=== PATIENT | male | born 1955 | race Caucasian/White ===

== ENCOUNTER 2019-01-06 18:32 | Inpatient (IN) ==
[2019-01-06] MEDS ORDERED: Furosemide 40 MG/4 ML VIAL IVP ONE (18:39)
--- NOTE | 2019-01-06 18:41 | Emergency Department Note ---
Disposition Clinical Impression: Congestive heart failure Qualifiers: Heart failure type: combined systolic and diastolic Heart failure chronicity: acute on chronic Qualified Code(s): I50.43 - Acute on chronic combined systolic (congestive) and diastolic (congestive) heart failure Disposition: Admitted As Inpatient Condition: Fair Referrals: Mynor Saldaña DO [Primary Care Provider] - Forms: ED Satisfaction Letter, Work/School Release Time of Disposition: 21:59 General Adult HPI - General Chief complaint: ED General Medical Stated complaint: WEIGHT GAIN/EDEMA Source: patient Limitations: no limitations Nursing Notes Reviewed: Yes Vital Signs Reviewed: Yes - History of Present Illness HPI Narrative: 63-year-old male presenting for one week history of gradually progressive and worsening lower extremity edema Past medical history of COPD and CHF History cellulitis Patient states pain in his lower extremities difficult ambulation Patient denies fever/chills, chest pain or shortness of breath, new neck or back pain, abdominal pain nausea vomiting hematuria or hematochezia or numbness and paresthesias. Onset (ago): week(s) Location: lower extremity Pain Severity: moderate Pain Scale: 4 - Related Data Home Medications Medication Instructions Recorded Confirmed Alprazolam [Xanax] TID 01/06/19 Duloxetine HCl [Cymbalta] 60 mg PO DAILY 01/06/19 01/06/19 FLUoxetine HCl [Prozac] DAILY 01/06/19 01/06/19 Furosemide [Lasix] 40 mg PO DAILY 01/06/19 01/06/19 Glimepiride [Amaryl] 4 mg PO DAILY 01/06/19 01/06/19 Levothyroxine [Synthroid] 25 mcg PO DAILY 01/06/19 01/06/19 Nadolol 20 mg PO DAILY 01/06/19 01/06/19 Pioglitazone [Actos] 45 mg PO DAILY 01/06/19 01/06/19 Potassium Chloride [K-Tab ER] 20 meq PO DAILY 01/06/19 01/06/19 Pregabalin [Lyrica] 200 mg PO TID 01/06/19 01/06/19 Simvastatin [Zocor] 40 mg PO HS 01/06/19 01/06/19 metFORMIN [Glucophage] BID 01/06/19 traZODone DAILY 01/06/19 Allergies Allergy/AdvReac Type Severity Reaction Status Date / Time No Known Allergies Allergy Verified 04/12/18 11:25 All systems ED: reviewed and negative except as stated. Review of Systems: As Per HPI Constitutional: Denies: fever, chills Cardiovascular: Denies: chest pain Respiratory: Denies: dyspnea Gastrointestinal: Denies: abdominal pain, nausea, vomiting, diarrhea, constipation, hematemesis, hematochezia Genitourinary: Denies: hematuria Musculoskeletal: Denies: back pain, neck pain Neurological: Denies: headache, weakness, numbness, paresthesias Past Medical History - Past Medical History Medical history: Reports: arthritis, diabetes, hyperlipidemia, hypertension, thyroid disease Psychiatric history: Reports: anxiety, depression, panic disorder - Social History Smoking Status: Current some day smoker Smokeless Tobacco Status: No Alcohol use: Reports: none Drug use: Reports: none Physical Exam - General Limitations: no limitations General appearance: alert, in no apparent distress - Head Head exam: atraumatic, normocephalic, normal inspection - Eye Eye exam: Present: normal appearance, PERRL, EOMI. Absent: scleral icterus - Neck Neck exam: Present: normal inspection, trachea midline - Chest Chest inspection: Present: normal inspection, symmetric chest wall rise - Respiratory Respiratory exam: Present: normal lung sounds bilaterally. Absent: respiratory distress, wheezes, stridor, accessory muscle use, prolonged expiratory phase - Cardiovascular Cardiovascular exam: Present: regular rate, normal rhythm, normal heart sounds, +S1, +S2. Absent: irregular rhythm, systolic murmur, diastolic murmur, JVD, +S3, +S4 - Abdominal Exam Abdominal exam: Present: soft, Non-Tender, normal bowel sounds. Absent: distention, guarding, rebound, rigidity, organomegaly - Extremities Exam Extremities exam: Present: pedal edema (3+ pitting edema bilateral lower extremities, there is erythema and swelling noted with areas of ulceration on the anterior shins bilaterally.) - Neurological Exam Neurological exam: Present: alert, oriented X3 - Psychiatric Psychiatric exam: Present: normal affect, normal mood - Skin Skin exam: Present: warm, dry, intact, normal color. Absent: rash, cyanosis, diaphoresis, erythema, pallor, mottled Course Course Narrative: CBC, BMP, troponin, chest x-ray 60 mg furosemide for management of patient's symptoms. Vital Signs Temperature 98.2 F 01/06/19 18:34 Pulse Rate 80 01/06/19 18:34 Respiratory Rate 16 01/06/19 18:34 Blood Pressure 113/51 01/06/19 18:34 O2 Sat by Pulse Oximetry 97 01/06/19 18:34 Temperature 98.2 F 01/06/19 18:34 Pulse Rate 80 01/06/19 18:34 Respiratory Rate 16 01/06/19 18:34 Blood Pressure 113/51 01/06/19 18:34 O2 Sat by Pulse Oximetry 97 01/06/19 18:34 Oxygen Delivery Oxygen Delivery Room Air Medical Decision Making - MDM Narrative Medical decision making narrative: Patient laboratory shows acute kidney injury Chest x-ray unremarkable for acute pathology Patient be admitted to hospital medicine service for CHF/potential right heart failure with overlying cellulitis of the bilateral lower extremities. - Lab Data Lab results reviewed: Yes I reviewed the patient's lab results. Result diagrams: 01/06/19 18:52 01/06/19 18:52 Lab Results 01/06/19 01/06/19 Range/Units 18:52 18:52 WBC 5.1 (4.3-11.1) K/mcL RBC 3.05 L (4.19-5.50) M/mcL Hgb 9.8 L (12.9-16.9) g/dL Hct 29.4 L (37.5-50.1) % MCV 96.4 (83.0-100.0) fL MCH 32.1 (28.0-33.3) pg MCHC 33.3 (31.6-35.5) g/dL RDW 13.3 (11.5-14.5) % Plt Count 183 (140-400) K/mcL MPV 10.7 (9.4-12.4) fL Immature Gran % 0.6 (0-4) % Seg Neutrophils % 58.6 % Lymphocytes % 24.5 % Monocytes % 11.8 % Eosinophils % 4.1 % Basophils % 0.4 % Neutrophils # 3.0 (1.6-8.9) K/mcL Lymphocytes # 1.2 (0.6-4.6) K/mcL Monocytes # 0.6 (0.0-1.3) K/mcL Eosinophils # 0.2 (0.0-0.6) K/mcL Basophils # 0.0 (0.0-0.2) K/mcL Sodium 136 (136-145) mEq/L Potassium 5.6 H (3.5-5.1) mEq/L Chloride 102 (98-107) mEq/L Carbon Dioxide 30 H (23-29) mEq/L BUN 66 H (8-23) mg/dL Creatinine 2.56 H (0.70-1.30) mg/dL Est GFR ( Amer) 31 L (> 60) Est GFR (Non-Af Amer) 26 L (> 60) BUN/Creatinine Ratio 26 (6-26) Glucose 119 H (70-105) mg/dL Calculated Osmolality 302 H (280-300) Calcium 9.1 (8.6-10.3) mg/dL Troponin I < 0.03 (< 0.04) ng/mL - Radiology Data Radiology results reviewed: Yes I reviewed the patient's radiology results. Chest X-Ray 01/06/19 18:40 IMPRESSION: No acute process. D/ / Aj Mulligan MD / Aj Mulligan MD Interpreting Provider: Aj Mulligan MD - EKG Data EKG #1 EKG attestation: Yes I reviewed and interpreted this EKG. EKG results narrative: Patient EKG shows a sinus rhythm with a heart rate of 78 bpm, MS interval of 150 ms, QR congregation 86 ms, QT/QTc interval 370/4-2 ms respectively. There are no significant ST segment elevations, depressions, pathologic Q waves, abnormal T-wave inversions, or any other signs of acute ischemic change. At this time there is no prior EKG available for comparison.
[2019-01-06 19:02] LABS: Basophils % 0.4 %; Eosinophils # 0.2 K/mcL (0.0-0.6); Eosinophils % 4.1 %; Hematocrit 29.4 % (37.5-50.1); Hemoglobin 9.8 g/dL (12.9-16.9); Immature Granulocytes % 0.6 % (0-4); Lymphocytes # 1.2 K/mcL (0.6-4.6); Lymphocytes % 24.5 %; Mean Corpuscular HGB Conc 33.3 g/dL (31.6-35.5); Mean Corpuscular Hemoglobin 32.1 pg (28.0-33.3); Mean Corpuscular Volume 96.4 fL (83.0-100.0); Mean Platelet Volume 10.7 fL (9.4-12.4); Monocytes # 0.6 K/mcL (0.0-1.3); Monocytes % 11.8 %; Platelet Count 183 K/mcL (140-400); Red Blood Count 3.05 M/mcL (4.19-5.50); Red Cell Distribution Width 13.3 % (11.5-14.5); Segmented Neutrophils % 58.6 %
--- NOTE | 2019-01-06 19:17 | Emergency Department Note ---
Disposition Clinical Impression: Congestive heart failure Qualifiers: Heart failure type: combined systolic and diastolic Heart failure chronicity: acute on chronic Qualified Code(s): I50.43 - Acute on chronic combined systolic (congestive) and diastolic (congestive) heart failure Disposition: Admitted As Inpatient Forms: ED Satisfaction Letter, Work/School Release General Adult HPI - General Chief complaint: ED General Medical Stated complaint: WEIGHT GAIN/EDEMA Time Seen by Provider: 01/06/19 18:41 Source: patient Limitations: no limitations Nursing Notes Reviewed: Yes Vital Signs Reviewed: Yes - History of Present Illness HPI Narrative: Attestation note: Patient was seen with the emergency medicine resident/nurse practitio ner/physician hearing aid assistant/transitional resident/medical student: Dr. Alfa Gregory I have personally performed a face to face evaluation on this patient. I have reviewed and agree with history and physical examination patient management and disposition. Briefly the salient points of the case are as follows: Fxsjyzdi-qsur-ded male has history of heart failure COPD is been having swollen legs for many months feeling worse over the past several weeks he has been trying to increase his Lasix dose from 20-40-60. Slightly getting more swollen home health care nurse came today was concerned sent him in for further evaluation patient has some worsening dyspnea on exertion but no active chest pain no fevers chills sputum no recent medication changes other than the Lasix. Since his use also been more unsteady and falling quite a bit. On physical examination patient does have large edematous legs 3+ to the mid tibial area with chronic skin changes of pigmentation. Full range of motion good pulses. Patient will get an EKG chest x-ray screening labs IV Lasix with admission. Disposition pending Pain Scale: 4 - Related Data Allergies Allergy/AdvReac Type Severity Reaction Status Date / Time No Known Allergies Allergy Verified 04/12/18 11:25 Past Medical History - Past Medical History Medical history: Reports: arthritis, diabetes, hyperlipidemia, hypertension, thyroid disease Psychiatric history: Reports: anxiety, depression, panic disorder - Social History Smoking Status: Current some day smoker Smokeless Tobacco Status: No Alcohol use: Reports: none Drug use: Reports: none Physical Exam - General Limitations: no limitations General appearance: alert, in no apparent distress Course Vital Signs Temperature 98.2 F 01/06/19 18:34 Pulse Rate 80 01/06/19 18:34 Respiratory Rate 16 01/06/19 18:34 Blood Pressure 113/51 01/06/19 18:34 O2 Sat by Pulse Oximetry 97 01/06/19 18:34 Temperature 98.2 F 01/06/19 18:34 Pulse Rate 80 01/06/19 18:34 Respiratory Rate 16 01/06/19 18:34 Blood Pressure 113/51 01/06/19 18:34 O2 Sat by Pulse Oximetry 97 01/06/19 18:34 Oxygen Delivery Oxygen Delivery Room Air Medical Decision Making - Lab Data Result diagrams: 01/06/19 18:52 Lab Results 01/06/19 Range/Units 18:52 WBC 5.1 (4.3-11.1) K/mcL RBC 3.05 L (4.19-5.50) M/mcL Hgb 9.8 L (12.9-16.9) g/dL Hct 29.4 L (37.5-50.1) % MCV 96.4 (83.0-100.0) fL MCH 32.1 (28.0-33.3) pg MCHC 33.3 (31.6-35.5) g/dL RDW 13.3 (11.5-14.5) % Plt Count 183 (140-400) K/mcL MPV 10.7 (9.4-12.4) fL Immature Gran % 0.6 (0-4) % Seg Neutrophils % 58.6 % Lymphocytes % 24.5 % Monocytes % 11.8 % Eosinophils % 4.1 % Basophils % 0.4 % Neutrophils # 3.0 (1.6-8.9) K/mcL Lymphocytes # 1.2 (0.6-4.6) K/mcL Monocytes # 0.6 (0.0-1.3) K/mcL Eosinophils # 0.2 (0.0-0.6) K/mcL Basophils # 0.0 (0.0-0.2) K/mcL
[2019-01-06 19:23] LABS: BUN/Creatinine Ratio 26 (6-26); Blood Urea Nitrogen 66 mg/dL (8-23); Calcium 9.1 mg/dL (8.6-10.3); Carbon Dioxide 30 mEq/L (23-29); Chloride 102 mEq/L (98-107); Glucose 119 mg/dL (70-105); Osmolality,Calculated 302 (280-300); Potassium 5.6 mEq/L (3.5-5.1); Sodium 136 mEq/L (136-145); Troponin I < 0.03 ng/mL (< 0.04); eGFR For Non-African Americans 26 (> 60)
[2019-01-06] MEDS ORDERED: *HR* FentaNYL (PF) 100 MCG/2 ML VIAL IVP ONE (20:33)
[2019-01-06] MEDS ORDERED: Piperacillin/Tazobactam 3.375 GM in Water for inj. (sterile) 20 ML 20 ML IVP ONE (21:57)
[2019-01-07] MEDS ORDERED: Ondansetron 4 MG/2 ML VIAL IVP PRN (02:10)
[2019-01-07] MEDS ORDERED: *HR* LORazepam 2 MG/ML VIAL IVP PRN (02:10)
[2019-01-07] MEDS ORDERED: Lactulose Oral Soln 20 GM/30 ML UDC PO ONE (02:10)
[2019-01-07] MEDS ORDERED: Naloxone 0.4 MG/ML INJ IVP PRN (02:10)
[2019-01-07] MEDS ORDERED: Dextrose Gel 15 GM/37.5 ML TUBE PO PRN ×2 (02:15)
[2019-01-07] MEDS ORDERED: *HR* Dextrose 50 % in Water (Syg) 50 ML SYRINGE IVP PRN (02:15)
[2019-01-07] MEDS ORDERED: D5% in Water 1,000 ML IVC PRN (02:15)
[2019-01-07 04:35] LABS: Basophils % 0.6 %; Eosinophils # 0.2 K/mcL (0.0-0.6); Eosinophils % 4.7 %; Hematocrit 29.6 % (37.5-50.1); Immature Granulocytes % 0.4 % (0-4); Lymphocytes # 1.4 K/mcL (0.6-4.6); Lymphocytes % 28.3 %; Mean Corpuscular HGB Conc 33.8 g/dL (31.6-35.5); Mean Corpuscular Hemoglobin 32.6 pg (28.0-33.3); Mean Corpuscular Volume 96.4 fL (83.0-100.0); Mean Platelet Volume 11.2 fL (9.4-12.4); Monocytes # 0.5 K/mcL (0.0-1.3); Monocytes % 9.4 %; Neutrophils # 2.9 K/mcL (1.6-8.9); Platelet Count 172 K/mcL (140-400); Red Blood Count 3.07 M/mcL (4.19-5.50); Red Cell Distribution Width 13.4 % (11.5-14.5); Segmented Neutrophils % 56.6 %
[2019-01-07 04:38] LABS: Prothrombin Time 11.5 Seconds (9.4-12.1)
[2019-01-07 04:41] LABS: Activated Partial Thrombo Time 29.8 Seconds (26.0-36.0)
[2019-01-07 04:50] LABS: Estimated Average Glucose 94 mg/dl; Hemoglobin A1C 4.9 %
[2019-01-07 04:56] LABS: Alanine Aminotransferase 16 Units/L (7-52); Albumin 3.6 g/dL (3.5-5.7); Albumin/Globulin Ratio 1.2 (1.1-2.2); Alkaline Phosphatase 61 Units/L (34-104); Aspartate Amino Transferase 22 Units/L (13-39); BUN/Creatinine Ratio 28 (6-26); Bilirubin,Total 0.4 mg/dL (0.3-1.0); Blood Urea Nitrogen 61 mg/dL (8-23); Calcium 9.3 mg/dL (8.6-10.3); Carbon Dioxide 29 mEq/L (23-29); Chloride 100 mEq/L (98-107); Glucose 157 mg/dL (70-105); Magnesium 2.3 mg/dL (1.6-2.6); Osmolality,Calculated 303 (280-300); Potassium 4.8 mEq/L (3.5-5.1); Sodium 136 mEq/L (136-145); Total Protein 6.6 g/dL (6.4-8.9); Troponin I < 0.03 ng/mL (< 0.04); eGFR For Non-African Americans 31 (> 60)
[2019-01-07] MEDS: Levothyroxine 25 MCG TABLET PO SCH (05:26)
--- NOTE | 2019-01-07 06:21 | Internal Med History&Physical ---
Date of Encounter: 01/07/19 Time of Encounter: 01:35 Internal Medicine - H&P: HPI Chief complaint: leg edema; diffculty urinating Admitted From: Emergency Dept Plans for Post Hospital Care: Home History of present illness: Mr. Loera is a 63 year old male who presents to the ER tonight with complaints of lower extremity edema, weakness, decreased urine output, difficulty urinating, and redness and tenderness to his lower extremities. ER staff ordered routine labs and treated him empirically for concerns of possible CHF. He had evidence of acute kidney injury on his labs. Nonetheless, he was given diuretics for suspected CHF. Chest x-ray and lung exam were clear according to ER staff. I discussed this with ER staff and inquired about possible liver disease or cirrhosis. ER staff noted that he had no alcohol use history and/or history of liver disease or cirrhosis. Upon my assessment of the patient, he denied any difficulty breathing, chest pain, cough, fever, shortness of breath. He did complain of increasing abdominal girth, worsening lower extremity edema, redness and tenderness to his lower legs, and decreased urine output. I asked him if he had any liver disease and he told me he had cirrhosis and known esophageal varices. I asked him about the etiology of cirrhosis, and he states he was a heavy drinker and recently quit drinking about 2 months ago. He denies any prior heart disease history or heart failure. Prior to today, he denies any prior kidney disease. Of note, patient takes diuretics and beta ubaldo for treatment of his cirrhosis. Past Med Surg Social Fam HX - Past Medical History Attestation: Yes The following information was validated with the patient. Source: patient, old records reviewed Medical history: arthritis, diabetes, hyperlipidemia, hypertension, thyroid disease Additional medical history: Type II Diabetic Psychiatric history: anxiety, depression, panic disorder - Past Surgical History Surgical History: orthopedic, other Additional surgical history: back surger x 3 - posterior and anterior neck surgery - Social History Smoking Status: Current some day smoker Smokeless Tobacco Status: No Alcohol use: none Drug use: none Current living situation: Home - Independent Activity Level: Independent ambulation Recent Out of Country Travel Within the Last 8 Weeks: No - Family History Mother History Unknown: Yes Father History Unknown: Yes Internal Medicine - H&P: Meds Alprazolam [Xanax] TID 01/06/19 [History] Duloxetine HCl [Cymbalta] 60 mg PO DAILY 01/06/19 [History] Furosemide [Lasix] 40 mg PO DAILY 01/06/19 [History] Glimepiride [Amaryl] 4 mg PO DAILY 01/06/19 [History] HYDROcodone/Acet 10/325 mg [Addison 10-325 mg] 1 tab PO TID 01/06/19 [History] Levothyroxine [Synthroid] 25 mcg PO DAILY 01/06/19 [History] Nadolol 20 mg PO DAILY 01/06/19 [History] Pioglitazone [Actos] 45 mg PO DAILY 01/06/19 [History] Potassium Chloride [K-Tab ER] 20 meq PO DAILY 01/06/19 [History] Pregabalin [Lyrica] 200 mg PO TID 01/06/19 [History] Simvastatin [Zocor] 40 mg PO HS 01/06/19 [History] metFORMIN [Glucophage] BID 01/06/19 [History] traZODone DAILY 01/06/19 [History] Allergy/AdvReac Type Severity Reaction Status Date / Time No Known Allergies Allergy Verified 04/12/18 11:25 - Constitutional Constitutional: chills, fever(s), no night sweats - EENT Eyes: no blurry vision, no change in vision Ears: no ear pain, no tinnitus Nose, mouth and throat: no nasal congestion, no sinus pressure, no sore throat - Cardiovascular Cardiovascular ROS IM: edema, no chest pain, no dyspnea, no dyspnea on exertion, no orthopnea, no paroxysmal nocturnal dyspnea - Respiratory Respiratory: no cough, no chest congestion, no excessive phlegm production, no change in phlegm color - Gastrointestinal Gastrointestinal: bloating, no abdominal pain, no diarrhea, no hematemesis, no hematochezia, no melena, no nausea, no vomiting - Genitourinary Genitourinary ROS male: difficulty urinating, no dysuria, no flank pain, no hematuria Additional comments: decreased urine output - Musculoskeletal Musculoskeletal ROS IM: back pain, no arthralgias - Integumentary Integumentary IM: erythema (both legs), no rash, no jaundice - Neurological Neurological ROS: confusion, no dizziness, no focal weakness, no frequent falls, no headache(s) - Psychiatric Psychiatric: no anxiety, no depression - Endocrine Endocrine IM: no cold intolerance, no heat intolerance, no polydipsia, no polyuria - Hematologic/Lymphatic Hematologic/Lymphatic: easy bruising - Allergic/Immunologic Allergic/Immunologic: no GI upset with certain foods - Constitutional Vitals: Temp Pulse Resp BP Pulse Ox 97.4 F L 74 15 113/58 98 01/07/19 05:25 01/07/19 05:25 01/07/19 05:25 01/07/19 05:25 01/07/19 05:25 General appearance: Present: cooperative, A&O X 3, pleasant, no acute distress, answers questions appropriately Exam: see below - Head Head exam: Present: atraumatic, normal inspection - Eye Eye exam: Present: EOMI, PERRL. Absent: scleral icterus Pupils: Present: normal accommodation - ENT ENT exam: Present: mucous membranes dry, normal exam, normal oropharynx - Neck Neck exam general surgery: Present: full ROM, supple, trachea midline. Absent: tenderness, nuchal rigidity, thyromegaly - Respiratory Respiratory exam: Present: CTAB. Absent: chest wall tenderness, rales, respiratory distress, rhonchi, wheezes - Cardiovascular Cardiovascular exam: Present: RRR, +S1, +S2. Absent: diastolic murmur, systolic murmur - GI/Abdominal GI/Abdominal exam: Present: distended, normal bowel sounds, no peritoneal signs. Absent: guarding, hepatomegaly, rebound, splenomegaly, tenderness - Extremities Exam Extremities exam: Present: full ROM, pedal edema (3+), tenderness, warm, radial pulses palpable and symmetrical. Absent: calf tenderness, joint swelling Additional comments: redness, warmth, and mild tenderness to both lower legs - Back Exam Back exam: Absent: CVA tenderness (L), CVA tenderness (R) - Neurological Exam Neurological exam: Present: alert, CN II-XII intact, oriented X3, strengths equal and symetr throughout. Absent: motor sensory deficit - Psychiatric Psychiatric exam: Present: flat affect - Skin Skin exam: Present: dry, erythema (BLE ), intact, warm Internal Med - H&P Results - Labs CBC & Chem 7: 01/07/19 04:17 01/07/19 04:17 Labs: Short CBC 01/06/19 01/07/19 Range/Units 18:52 04:17 WBC 5.1 5.1 (4.3-11.1) K/mcL Hgb 9.8 L 10.0 L (12.9-16.9) g/dL Hct 29.4 L 29.6 L (37.5-50.1) % Plt Count 183 172 (140-400) K/mcL Neutrophils # 3.0 2.9 (1.6-8.9) K/mcL BMP 01/06/19 01/07/19 18:52 04:17 Sodium 136 136 Potassium 5.6 H 4.8 Chloride 102 100 Carbon Dioxide 30 H 29 BUN 66 H 61 H Creatinine 2.56 H 2.18 H Glucose 119 H 157 H Calcium 9.1 9.3 Cardiac Enzymes 01/06/19 01/07/19 Range/Units 18:52 04:17 Troponin I < 0.03 < 0.03 (< 0.04) ng/mL Liver Function 01/07/19 Range/Units 04:17 Total Bilirubin 0.4 (0.3-1.0) mg/dL AST 22 (13-39) Units/L ALT 16 (7-52) Units/L Alkaline Phosphatase 61 (34-104) Units/L Albumin 3.6 (3.5-5.7) g/dL - EKG Data -: EKG Interpreted by Myself - EKG Data Prior EKG available for review: no EKG comments: 01/07/19 06:28 NSR; no acute changes - Impressions ITS Impressions Chest X-Ray 01/06/19 18:40 IMPRESSION: No acute process. D/ / Aj Mulligan MD / Aj Mulligan MD Interpreting Provider: Aj Mulligan MD - Diagnostic Studies Chest x-ray Status: image reviewed by me (negative) - Assessment and Plan (1) Cellulitis of leg Current Visit: Yes Status: Acute Assessment and plan: 1. Blood cultures have been drawn. 2. Will treat with IV Zosyn and monitor clinically. 3. Avoid Vancomycin due to acute kidney failure. 4. May need Zyvox if does not improve with Zosyn. Qualifiers: Laterality: unspecified laterality Qualified Code(s): L03.119 - Cellulitis of unspecified part of limb (2) Acute kidney failure Current Visit: Yes Status: Acute Assessment and plan: 1. Hold diuretics. 2. Monitor I/O closely and renal function. 3. Will order renal ultrasound. 4. Consult nephrology. 5. Will order U/A C&S. 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 Will monitor electrolytes and LFT's. 2. Will place on CIWA protocol and monitor for withdrawal. 3. No recent history to suggest GI bleed. However, patient has documented esophageal varices. Qualifiers: Ascites presence: unspecified Qualified Code(s): K70.30 - Alcoholic cirrhosis of liver without ascites (4) Type 2 diabetes mellitus Current Visit: Yes Status: Chronic Assessment and plan: 1. Hold oral diabetic meds. 2. Will order SSI and monitor glucose closely. 3. Actos is known to lead to edema -- recommend stopping upon discharge. Qualifiers: Diabetes mellitus fdc insulin use: without intermediate project manager use Diabetes mellitus complication status: without complication Qualified Code(s): E11.9 - Type 2 diabetes mellitus without complications (5) DVT prophylaxis Current Visit: Yes Status: Acute Assessment and plan: 1. EPCD's.
[2019-01-07] MEDS: Insulin LISPRO 300 UNITS/3 ML VIAL SQ SCH ×3 (07:46→17:41)
[2019-01-07] MEDS: Vitamin B Complex/Vit C/Vit E 1 EACH TABLET PO SCH (08:09)
[2019-01-07] MEDS: Thiamine (B-1) 100 MG TABLET PO SCH (08:09)
[2019-01-07] MEDS: Folic Acid 1 MG TABLET PO SCH (08:09)
[2019-01-07] MEDS: *HR* HYDROcodone/Acet 10/325 mg TABLET PO PRN ×3 (08:10→18:31)
[2019-01-07] MEDS: Piperacillin/Tazobactam 3.375 GM in 0.9 % Sodium Chloride Mini Bag 100 ML IVPB SCH ×2 (08:10→17:36)
--- NOTE | 2019-01-07 11:01 | Internal Med Progress Note ---
Hospitalist Progress Note - Encounter Date of Encounter: 01/07/19 Time of Encounter: 10:56 - Subjective Interval History: Pt staed that he just wants his pain to be under control and his real goal is to be comfortable and so he can go and see his grandson playing baseball. he wishes to be no machines, DNR/DNI. - Exam Vitals: Temp Pulse Resp BP Pulse Ox 98 F 71 16 100/60 98 01/07/19 07:06 01/07/19 07:06 01/07/19 07:06 01/07/19 07:06 01/07/19 07:06 Exam: Gen: lying in bed Heart: s1 ,S2, RRR Lungs: CTAB, no w/c/r Abd: soft, large, with fluid wave, hypotympanic LE: 3+ pitting edema - Summary of Assessment and Plan Summary of Assessment and Plan: This is a 63 yom who presetned with anarsarca 1) liver cirhosis/anarsarca: Pt takes psironlactone and lasix at home, pt stated he gained weight lately and after discussion, pt's goal is really not treatment, rather he just his pain to be controlled. 2) pain control: I talked to him about it, he would like home hospice where his pain is under control. We will start a higher dose. 3)celluliits: on abx currenly 4)acute on chronic renal faliure: Nephrolog had been consutled 5)code: DNR/DNI, pt doesnt' want machines 6) dispo: I talked to the pt and had clarification of the goal. Pt wants home hospice, we will ask the licensed master social worker to set it up. time: 35 min - Time Spent with Patient Total time spent is greater than 50% in coordination of care (as documented) at patient's floor/unit and/or counseling patient: Internal Medicine: Result - Labs CBC & Chem 7: 01/07/19 04:17 01/07/19 04:17 Labs: Short CBC 01/06/19 01/07/19 Range/Units 18:52 04:17 WBC 5.1 5.1 (4.3-11.1) K/mcL Hgb 9.8 L 10.0 L (12.9-16.9) g/dL Hct 29.4 L 29.6 L (37.5-50.1) % Plt Count 183 172 (140-400) K/mcL Neutrophils # 3.0 2.9 (1.6-8.9) K/mcL BMP 01/06/19 01/07/19 18:52 04:17 Sodium 136 136 Potassium 5.6 H 4.8 Chloride 102 100 Carbon Dioxide 30 H 29 BUN 66 H 61 H Creatinine 2.56 H 2.18 H Glucose 119 H 157 H Calcium 9.1 9.3 Cardiac Enzymes 01/06/19 01/07/19 01/07/19 Range/Units 18:52 04:17 08:21 Troponin I < 0.03 < 0.03 < 0.03 (< 0.04) ng/mL Liver Function 01/07/19 Range/Units 04:17 Total Bilirubin 0.4 (0.3-1.0) mg/dL AST 22 (13-39) Units/L ALT 16 (7-52) Units/L Alkaline Phosphatase 61 (34-104) Units/L Albumin 3.6 (3.5-5.7) g/dL - ABG Interpretation ABG results: PT/INR, D-dimer PT 11.5 Seconds (9.4-12.1) 01/07/19 04:17 - Impressions Impressions Chest X-Ray 01/06/19 18:40 IMPRESSION: No acute process. D/ / Aj Mulligan MD / Aj Mulligan MD Interpreting Provider: Aj Mulligan MD Echocardiogram 01/07/19 02:15 Impressions: LVEF 60-65%. Moderate left ventricular diastolic dysfunction. Normal right ventricular structure and function. Mild mitral regurgitation. Mild tricuspid regurgitation. No pulmonary hypertension. Left Ventricular Wall Motion: Rest Echo Findings All wall segments showed normal motion. Findings: Study Quality * Technically adequate exam. ECG Findings * Normal sinus rhythm. Left Ventricle * LVEF 60-65%. * Normal LV chamber size, wall thickness and function. * Moderate left ventricular diastolic dysfunction. Right Ventricle * Normal right ventricular structure and function. Left Atrium * Moderately dilated left atrium. Right Atrium * Normal right atrial size. Aortic Valve * Trileaflet aortic valve. * No aortic regurgitation. * No aortic stenosis. Mitral Valve * Normal mitral valve structure. * No mitral stenosis. * Mild mitral regurgitation. Tricuspid Valve * Tricuspid valve not well visualized. * Mild tricuspid regurgitation. * Estimated RA pressure is 3 mmHg. Pulmonic Valve * Pulmonic valve is not well visualized. * No pulmonic stenosis. * No pulmonic regurgitation. Pulmonary Artery * Pulmonary artery not well visualized. Aorta * Normally sized aortic root. Pericardium * There is no pericardial effusion present. Interatrial Septum * No evidence of PFO by color Doppler. IVC * Normal IVC dimensions and inspiratory collapse. Consult Discharge Plan - Plan Referrals: Mynor Saldaña DO [Primary Care Provider] -
--- NOTE | 2019-01-07 13:06 | Nephrology Consult Note ---
Date of Encounter: 01/07/19 Time of Encounter: 13:00 Assessment and Plan (1) ARINA (acute kidney injury) Current Visit: Yes Status: Acute Elevated SCr in the setting of diuretics and liver cirrhosis Not sure if pt is willing to have workup for RAINA or not but would start with urinary studies Avoid nephrotoxins if possible History of Present Illness - Reason for Consult Consult date: 01/07/19 Acute Kidney Injury Requesting physician: Jan Plummer - History of Present Illness 63 y o male with PMH of DM, HTN, high chol and liver cirrhosis admitted with worsening edema and generalized weaakness. renal consulted for elevated SCr at 2.56, GFR 26 on admission improving to 2.18, GFR 31 today with baseline SCr noted at 1.17 as of july. Pt was initially treated for CHF exacerbation with diuretics. Potassium elevated at 5.6 improving to 4.8. Pt now apparently requesting no invasive measures preferring DNR/DNI status and requesting hospice care. Pt is noted on diuretics and potassium supplements at home Past Med Surg Social Fam HX - Past Medical History Medical history: arthritis, diabetes, hyperlipidemia, hypertension, thyroid disease Additional medical history: Type II Diabetic Psychiatric history: anxiety, depression, panic disorder - Past Surgical History Surgical History: orthopedic, other Additional surgical history: back surger x 3 - posterior and anterior neck surgery - Social History Smoking Status: Current some day smoker Smokeless Tobacco Status: No Alcohol use: none Drug use: none - Family History Mother History Unknown: Yes Father History Unknown: Yes Medications and Allergies Alprazolam [Xanax] TID 01/06/19 [History] Duloxetine HCl [Cymbalta] 60 mg PO DAILY 01/06/19 [History] Furosemide [Lasix] 40 mg PO DAILY 01/06/19 [History] Glimepiride [Amaryl] 4 mg PO DAILY 01/06/19 [History] HYDROcodone/Acet 10/325 mg [[place] 10-325 mg] 1 tab PO TID 01/06/19 [History] Levothyroxine [Synthroid] 25 mcg PO DAILY 01/06/19 [History] Nadolol 20 mg PO DAILY 01/06/19 [History] Pioglitazone [Actos] 45 mg PO DAILY 01/06/19 [History] Potassium Chloride [K-Tab ER] 20 meq PO DAILY 01/06/19 [History] Pregabalin [Lyrica] 200 mg PO TID 01/06/19 [History] Simvastatin [Zocor] 40 mg PO HS 01/06/19 [History] metFORMIN [Glucophage] BID 01/06/19 [History] traZODone DAILY 01/06/19 [History] Allergy/AdvReac Type Severity Reaction Status Date / Time No Known Allergies Allergy Verified 04/12/18 11:25 Exam - Vital Signs Vital signs: Initial Vital Signs Temp Pulse Resp BP Pulse Ox 98.2 F 80 16 113/51 97 01/06/19 18:34 01/06/19 18:34 01/06/19 18:34 01/06/19 18:34 01/06/19 18:34 Vital Signs - Last 8 Hours Temp Pulse Resp BP Pulse Ox 01/07/19 07:06 98 F 71 16 100/60 98 01/07/19 05:25 97.4 F L 74 15 113/58 98 Intake and Output 01/06/19 01/07/19 01/07/19 23:59 07:59 15:59 Intake Total 20 / 20 360 / 360 Output Total 100 / 100 1050 / 1600 550 / 1600 Balance -80 / -80 -1050 / -1240 -190 / -1240 Intake: IV Fluids 20 / 20 Zosyn 3.375 GM In Water for inj 20 20 . (sterile) 20 ML @ 400 mls/hr IVP ONCE ONE Rx#:[id number] Oral 360 / 360 Output: Urine 100 / 100 1050 / 1600 550 / 1600 Other: Meal Breakfast Percent of Meal Consumed 95% Weight 125.2 kg Blood Glucose* 121 117 Results - Lab Results 01/07/19 04:17 01/07/19 04:17 Most recent lab results 01/07/19 04:17 Calcium 9.3 Magnesium 2.3 Consult Discharge Plan - Plan Referrals: Mynor Saldaña DO [Primary Care Provider] -
--- NOTE | 2019-01-07 15:49 | Electrocardiograph Report ---
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
--- NOTE | 2019-01-07 15:53 | Electrocardiograph Report ---
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
--- NOTE | 2019-01-07 16:16 | Palliative - Consult Note ---
<LatabranernestinaFeliz vuong - Last Filed: 01/07/19 15:42> Date of Encounter: 01/07/19 Time of Encounter: 14:45 - Assessment and Plan (1) Goals of care, counseling/discussion Current Visit: Yes Status: Acute Assessment and plan: Was able to thoroughly discuss with patient what hospice care would entail. We discussed how the focus of hospice care would be comfort care, however this would not make him feel better enough and stable to take his grandchildren to baseball games. We both agreed that the best way for him to achieve this goal is through hospital and primary care treatment. Patient's MELD score is also 15, which would put him at a < 6% chance of a 90-day mortality. Hospice criteria for liver failure would also require a prothrombin time prolonged more than 5 seconds over control, or International Normalized Ratio (INR) >1.5; A MELD score of 15 also further supports that hospice at this time would not be appropriate for this patient. Patient did reaffirm that he wished to be DNR-CCA/DNI. Further discussion with the patient revealed that he lives alone at home. He does keep in contact with one of his daughters Agatha. (2) Palliative care encounter Current Visit: Yes Status: Acute (3) Alcoholic cirrhosis Current Visit: Yes Status: Chronic Assessment and plan: After speaking to the patient about his goals of care, we agreed that hospice care is not appropriate at this point. He does have a life-limiting condition with his liver cirrhosis, however he does not have a hospice qualifying diagnosis. As a result, we recommend the patient to be treated for his liver cirrhosis at this point. Qualifiers: Ascites presence: unspecified Qualified Code(s): K70.30 - Alcoholic cirrhos is of liver without ascites (4) Cellulitis of leg Current Visit: Yes Status: Acute Assessment and plan: Patient is on day #2 of zosyn. Qualifiers: Laterality: unspecified laterality Qualified Code(s): L03.119 - Cellulitis of unspecified part of limb (5) RAINA (acute kidney injury) Current Visit: Yes Status: Acute Assessment and plan: Nephrology consulted. Patient has elevated creatinine in the setting of diuretics and liver cirrhosis. Per nephrology, recommend to get further urinary studies and avoid nephrotoxins. Palliative-CN HPI - Data of Consult Consult date: 01/07/19 Requesting Physician: Jan Plummer MD Primary Care Provider: Mynor Saldaña, DO - Consult Narrative Reason for consult: Goals of Care Discussion and Hospice Eligibility History of present illness: Mr. Loera is a 63 year old male with a PMH of alcohol abuse, liver cirrhosis, esophageal varicies, COPD, CHF, T2DM, and and hypothyroidism that presented on 01/07/19 for LE swelling and difficulty urinating. Patient noted that he had been having swelling of his LE for many months, however within the past few weeks it has increased. He has tried increasing his home lasix dosage from 20 mg up to 60 mg. Upon presentation to ER, he was noted to have worsening swelling in his LE w ith +3 b/l pitting edema along with chronic skin changes of pigmentation. VS were stable. CXR was stable. It was noted that he had worsening renal function, possible overlying cellulitis, and fluid overload likely secondary to liver cirrhosis. Patient denied any difficulty breathing, chest pain, cough, fever, shortness of breath. He denied any prior heart disease history or heart failure. He denied any prior kidney disease. LAst alcoholic drink was 6-8 months ago. Patient was admitted for further evaluation. He was placed on CIWA protocol. Diuretics were held due to his RAINA and renal u/s was ordered and nephrology was consulted. Blood cultures were drawn for his cellilitis and he was started on zosyn. Palliative care was consulted for goals of care and to discuss hopsice care. When seen today, patient discussed that his main goal is to get better in order to be able to do activities such as going to a baseball game with his grandchildren. He reaffirmed that he wants his code status to be DNRCCA-DNI. He admits to issues with chronic back pain, but currently denies abdominal pain. He does admit to swelling in his LE and some discomfort with that. Denies any chest pain or SOB. CC: Jan Plummer MD - Time Spent with Patient Time: Total time spent is greater than 50% in coordination of care (as documented) at patient's floor/unit and/or counseling patient: Past Med Surg Social Fam HX - Past Medical History Medical history: arthritis, diabetes, hyperlipidemia, hypertension, thyroid disease Additional medical history: Type II Diabetic Psychiatric history: anxiety, depression, panic disorder - Past Surgical History Surgical History: orthopedic, other Additional surgical history: back surger x 3 - posterior and anterior neck surgery - Social History Smoking Status: Current some day smoker Smokeless Tobacco Status: No Alcohol use: none Drug use: none - Family History Mother History Unknown: Yes Father History Unknown: Yes Medications and Allergies Alprazolam [Xanax] 2 mg PO TID 01/06/19 [History] Duloxetine HCl [Cymbalta] 60 mg PO DAILY 01/06/19 [History] Furosemide [Lasix] 40 mg PO DAILY 01/06/19 [History] Glimepiride [Amaryl] 4 mg PO DAILY 01/06/19 [History] HYDROcodone/Acet 10/325 mg [[place] 10-325 mg] 1 tab PO TID 01/06/19 [History] Levothyroxine [Synthroid] 25 mcg PO QAM 01/06/19 [History] Nadolol 20 mg PO DAILY 01/06/19 [History] Potassium Chloride [K-Tab ER] 20 meq PO DAILY 01/06/19 [History] Pregabalin [Lyrica] 200 mg PO TID 01/06/19 [History] Simvastatin [Zocor] 40 mg PO DAILY 01/06/19 [History] Trazodone HCl 300 mg PO HS 01/06/19 [History] metFORMIN [Glucophage] 500 mg PO BID 01/06/19 [History] Cetirizine HCl 10 mg PO BID 01/07/19 [History] Cholecalciferol (D-3) [Vitamin D] 1,000 unit PO DAILY 01/07/19 [History] Fluocinonide 1 appl TP DAILY 01/07/19 [History] Fluticasone Propionate Nasal [Flonase] 2 spray NS BID 01/07/19 [History] Ketoconazole Shampoo [Nizoral Shampoo] 1 appl TP DAILY 01/07/19 [History] Lactose-Reduced Food [Ensure Plus] 1 bottle PO TID 01/07/19 [History] Losartan/Hydrochlorothiazide [Hyzaar 100-25 Tablet] 1 tab PO DAILY 01/07/19 [History] Meloxicam 15 mg PO DAILY 01/07/19 [History] Pantoprazole Sodium [Protonix] 40 mg PO DAILY 01/07/19 [History] Allergy/AdvReac Type Severity Reaction Status Date / Time No Known Allergies Allergy Verified 01/07/19 14:22 - Constitutional Constitutional ROS PAL: as per HPI, decreased appetite, frequent falls, lethargy, no fever(s) - Cardiovascular Cardiovascular ROS: leg edema, pedal edema, no chest pain, no chest pain at rest, no chest pain with activity - Respiratory Respiratory: wheezing (Ocassional), no dyspnea, no pain on inspiration - Gastrointestinal Gastrointestinal: as per HPI, no abdominal pain, no nausea, no vomiting - Genitourinary Genitourinary ROS male: as per HPI, difficulty urinating, other (Decreased urine output.) - Musculoskeletal Musculoskeletal ROS IM: back pain, muscle weakness, myalgias - Integumentary ROS Integumentary: erythema, lesions, no jaundice - Neurological Neurological ROS: frequent falls, weakness, no confusion, no dizziness, no vertigo - Psychiatric Psychiatric general PM: no behavioral changes, no confusion Palliative Care-Exam - Constitutional Vitals: Temp Pulse Resp BP Pulse Ox 98 F 71 16 100/60 98 01/07/19 07:06 01/07/19 07:06 01/07/19 07:06 01/07/19 07:06 01/07/19 07:06 General appearance: Present: morbidly obese - Head Head Exam: Present: atraumatic, normal inspection, normocephalic - Eye Eye exam: Present: normal appearance, sclera anicteric. Absent: conjuntiva pink - Neck Neck exam: Present: normal inspection - Respiratory Respiratory exam: Present: CTAB, wheezes. Absent: accessory muscle use, chest wall tenderness, respiratory distress, rhonchi Additional comments: He did have some intermittent audible wheezing prior to auscultation. - Cardiovascular Cardiovascular exam: Present: RRR, +S1, +S2. Absent: JVD, +S3, +S4 Additional comments: Distant heart sounds. - GI/Abdominal Exam GI/Abdominal exam: Present: distended, normal bowel sounds, soft. Absent: guarding, mass, rebound, tenderness additional comments: Positive fluid shifting. - Extremities Exam Extremities exam: Present: normal capillary refill, pedal edema (+3 b/l pitting edema. ). Absent: calf tenderness, tenderness Additional comments: Pedal pulses were +1/2 b/l. There was erythema noted most prominently in the left lower tibial region. No tenderness to palpation. Loss of hair noted in lower extremities. - Neurological Exam Neurological exam: Present: alert, oriented X3, no focal deficits. Absent: facial droop, speech deficit - Psychiatric Psychiatric exam: Present: normal affect, normal mood. Absent: agitated, anxious - Skin Skin exam: Present: erythema (LE in tibial region.), pallor (Minor pallor in both ankles and feet.). Absent: cyanosis Internal Medicine - CN: Reslt - Labs CBC & Chem 7: 01/07/19 04:17 01/07/19 04:17 Labs: Short CBC 01/06/19 01/07/19 Range/Units 18:52 04:17 WBC 5.1 5.1 (4.3-11.1) K/mcL Hgb 9.8 L 10.0 L (12.9-16.9) g/dL Hct 29.4 L 29.6 L (37.5-50.1) % Plt Count 183 172 (140-400) K/mcL Neutrophils # 3.0 2.9 (1.6-8.9) K/mcL BMP 01/06/19 01/07/19 18:52 04:17 Sodium 136 136 Potassium 5.6 H 4.8 Chloride 102 100 Carbon Dioxide 30 H 29 BUN 66 H 61 H Creatinine 2.56 H 2.18 H Glucose 119 H 157 H Calcium 9.1 9.3 Cardiac Enzymes 01/06/19 01/07/19 01/07/19 Range/Units 18:52 04:17 08:21 Troponin I < 0.03 < 0.03 < 0.03 (< 0.04) ng/mL 01/07/19 Range/Units 13:14 Troponin I < 0.03 (< 0.04) ng/mL Liver Function 01/07/19 Range/Units 04:17 Total Bilirubin 0.4 (0.3-1.0) mg/dL AST 22 (13-39) Units/L ALT 16 (7-52) Units/L Alkaline Phosphatase 61 (34-104) Units/L Albumin 3.6 (3.5-5.7) g/dL - ABG Interpretation ABG results: PT/INR, D-dimer PT 11.5 Seconds (9.4-12.1) 01/07/19 04:17 - Impressions Impressions Chest X-Ray 01/06/19 18:40 IMPRESSION: No acute process. D/ / Aj Mulligan MD / Aj Mulligan MD Interpreting Provider: Aj Mulligan MD Echocardiogram 01/07/19 02:15 Impressions: LVEF 60-65%. Moderate left ventricular diastolic dysfunction. Normal right ventricular structure and function. Mild mitral regurgitation. Mild tricuspid regurgitation. No pulmonary hypertension. Left Ventricular Wall Motion: Rest Echo Findings All wall segments showed normal motion. Findings: Study Quality * Technically adequate exam. ECG Findings * Normal sinus rhythm. Left Ventricle * LVEF 60-65%. * Normal LV chamber size, wall thickness and function. * Moderate left ventricular diastolic dysfunction. Right Ventricle * Normal right ventricular structure and function. Left Atrium * Moderately dilated left atrium. Right Atrium * Normal right atrial size. Aortic Valve * Trileaflet aortic valve. * No aortic regurgitation. * No aortic stenosis. Mitral Valve * Normal mitral valve structure. * No mitral stenosis. * Mild mitral regurgitation. Tricuspid Valve * Tricuspid valve not well visualized. * Mild tricuspid regurgitation. * Estimated RA pressure is 3 mmHg. Pulmonic Valve * Pulmonic valve is not well visualized. * No pulmonic stenosis. * No pulmonic regurgitation. Pulmonary Artery * Pulmonary artery not well visualized. Aorta * Normally sized aortic root. Pericardium * There is no pericardial effusion present. Interatrial Septum * No evidence of PFO by color Doppler. IVC * Normal IVC dimensions and inspiratory collapse. Consult Discharge Plan - Plan Referrals: Mynor Saldaña DO [Primary Care Provider] - Palliative Quality Palliative Quality: Screen for Code Status: Yes, Screen for Goals of Care: Yes, Screen for Pain: Yes, If Pain Regimen Started, Initiate Bowel Regimen: Yes, Screen for Nausea/Vomitting: Yes Code Status: 01/07/19 02:10 Resuscitation Status: Active [RES] Routine Comment: Resuscitation Status: Full Code 01/07/19 10:54 Resuscitation Status: Active [RES] Routine Comment: Resuscitation Status: [id number] <Esperanza Kumra - Last Filed: 01/07/19 17:54> Date of Encounter: 01/07/19 Palliative-CN HPI - Data of Consult Requesting Physician: Jan Plummer MD Primary Care Provider: Mynor Saldaña DO - Consult Narrative History of present illness: Mr. Loera is a 63 year old male CC: Jan Plummer MD - Time Spent with Patient Time: Total time spent is greater than 50% in coordination of care (as documented) at patient's floor/unit and/or counseling patient: Palliative Care-Exam - Constitutional Vitals: Temp Pulse Resp BP Pulse Ox 98 F 71 16 100/60 98 01/07/19 07:06 01/07/19 07:06 01/07/19 07:06 01/07/19 07:06 01/07/19 07:06 Internal Medicine - CN: Reslt - Labs CBC & Chem 7: 01/07/19 04:17 01/07/19 04:17 Labs: Short CBC 01/06/19 01/07/19 Range/Units 18:52 04:17 WBC 5.1 5.1 (4.3-11.1) K/mcL Hgb 9.8 L 10.0 L (12.9-16.9) g/dL Hct 29.4 L 29.6 L (37.5-50.1) % Plt Count 183 172 (140-400) K/mcL Neutrophils # 3.0 2.9 (1.6-8.9) K/mcL BMP 01/06/19 01/07/19 18:52 04:17 Sodium 136 136 Potassium 5.6 H 4.8 Chloride 102 100 Carbon Dioxide 30 H 29 BUN 66 H 61 H Creatinine 2.56 H 2.18 H Glucose 119 H 157 H Calcium 9.1 9.3 Cardiac Enzymes 01/06/19 01/07/19 01/07/19 Range/Units 18:52 04:17 08:21 Troponin I < 0.03 < 0.03 < 0.03 (< 0.04) ng/mL 01/07/19 Range/Units 13:14 Troponin I < 0.03 (< 0.04) ng/mL Liver Function 01/07/19 Range/Units 04:17 Total Bilirubin 0.4 (0.3-1.0) mg/dL AST 22 (13-39) Units/L ALT 16 (7-52) Units/L Alkaline Phosphatase 61 (34-104) Units/L Albumin 3.6 (3.5-5.7) g/dL - ABG Interpretation ABG results: PT/INR, D-dimer PT 11.5 Seconds (9.4-12.1) 01/07/19 04:17 - Impressions Impressions Chest X-Ray 01/06/19 18:40 IMPRESSION: No acute process. D/ / Aj Mulligan MD / Aj Mulligan MD Interpreting Provider: Aj Mulligan MD Echocardiogram 01/07/19 02:15 Impressions: LVEF 60-65%. Moderate left ventricular diastolic dysfunction. Normal right ventricular structure and function. Mild mitral regurgitation. Mild tricuspid regurgitation. No pulmonary hypertension. Left Ventricular Wall Motion: Rest Echo Findings All wall segments showed normal motion. Findings: Study Quality * Technically adequate exam. ECG Findings * Normal sinus rhythm. Left Ventricle * LVEF 60-65%. * Normal LV chamber size, wall thickness and function. * Moderate left ventricular diastolic dysfunction. Right Ventricle * Normal right ventricular structure and function. Left Atrium * Moderately dilated left atrium. Right Atrium * Normal right atrial size. Aortic Valve * Trileaflet aortic valve. * No aortic regurgitation. * No aortic stenosis. Mitral Valve * Normal mitral valve structure. * No mitral stenosis. * Mild mitral regurgitation. Tricuspid Valve * Tricuspid valve not well visualized. * Mild tricuspid regurgitation. * Estimated RA pressure is 3 mmHg. Pulmonic Valve * Pulmonic valve is not well visualized. * No pulmonic stenosis. * No pulmonic regurgitation. Pulmonary Artery * Pulmonary artery not well visualized. Aorta * Normally sized aortic root. Pericardium * There is no pericardial effusion present. Interatrial Septum * No evidence of PFO by color Doppler. IVC * Normal IVC dimensions and inspiratory collapse. Retroperitoneum Ultrasound 01/07/19 15:30 IMPRESSION: Small postvoid bladder residual. Otherwise unremarkable ultrasound of the kidneys and bladder. D/ / 01/07/2019 17:24:56 Wander Garland MD / kirstin Interpreting Provider: Wander Garland MD - Attending Attestation I performed a history and physical examination of the patient and discussed his management with the resident. I reviewed the residents note and agree with the documented findings and plan of care, except as follow: Met with patient at the bedside, he was adamant and oriented times history, aware of his medical condition discussed current medical condition, trajectory of illness, prognosis and treatment options. To ride a discussion patient was mostly concerned about his back pain, patient has history of chronic back pain, status post several surgeries. He is having a hard time controlling his pain because of the lack of physician I will prescribe narcotics. He has recently been prescribed no call treat times a day he sees that it does not walk well for him even though he does take the age of the patient. Patient's wish is to have his pain controlled, to improve his lifestyle, and to live at home and well so that he can be with his children and his grandchildren. Patient inquired about the possibility for liver transplant. Discussed with patient about hospice, explained that hospice on to palliative care and hospice to 4 causing pain and symptom management, symptoms most be related to a palliative diagnosis. Patient has a palliative diagnosis of liver cirrhosis, which is life limiting diagnosis, but it is not deviated time in the. Dissemination of terminal liver cirrhosis includes INR more than 1.5, hypoalbuminemia, and uncontrollable symptoms and complications(refractory variceal bleeding, hyperammonemia, hepatic encephalopathy refractory to treatment, hepatorenal syndrome, ...) Discuss with patient that hospice may not be appropriate at this time for him, as it was failed to reach his goal of improving his health and spending more time with his family and his grandchildren ballgames. Advise for patient to continue on current medical management, to see how he can be optimized, to be compliant with diet and treatment, and to seek pain management physician for his back pain. Patient agreeable. Remains DNR CC arrest and DNI. Palliative care will follow on Thursday for further advanced care planning. Palliative Quality Code Status: 01/07/19 02:10 Resuscitation Status: Active [RES] Routine Comment: Resuscitation Status: Full Code 01/07/19 10:54 Resuscitation Status: Active [RES] Routine Comment: Resuscitation Status: [id number] Palliative Scale - Palliative Performance Scale How ambulatory is this patient?: Mainly sit / lie What is patient's level of activity and evidence of disease?: Unable normal job/work, Significant disease How much self-care assistance does patient require?: Occasional assistance necessary How much oral intake does the patient have?: Normal or reduced What is this patient's level of consciousness?: Full Palliative Performance Score: 60 %
[2019-01-07 16:59] LABS: Uric Acid 5.9 mg/dL (2.3-7.6)
[2019-01-07] MEDS: *HR* Heparin 5,000 UNIT/ML VIAL SQ SCH ×2 (17:34→21:22)
[2019-01-07 18:47] LABS: Sodium, Urine 77.7 mEq/L
[2019-01-07] MEDS: *HR* OxyCODONE Immed Rel 5 MG TABLET PO PRN (21:22)
[2019-01-07] MEDS: Lactulose Oral Soln 20 GM/30 ML UDC PO SCH (21:22)
[2019-01-08] MEDS: Piperacillin/Tazobactam 3.375 GM in 0.9 % Sodium Chloride Mini Bag 100 ML IVPB SCH ×2 (00:24→08:13)
[2019-01-08 00:55] LABS: Bilirubin,Urine Negative (Negative); Blood,Urine Negative (Negative); Clarity,Urine Clear (Clear); Color,Urine Yellow (Yellow); Glucose,Urine (UA) Normal (Normal); Ketones,Urine Negative (Negative); Leukocyte Esterase,Urine Negative (Negative); Nitrite,Urine Negative (Negative); Protein,Urine Trace mg/dL (Neg-Trace); Specific Gravity,Urine 1.011 (1.010-1.025); Urobilinogen,Urine Normal (Normal)
[2019-01-08] MEDS: *HR* OxyCODONE Immed Rel 5 MG TABLET PO PRN (04:24)
[2019-01-08] MEDS: Levothyroxine 25 MCG TABLET PO SCH (05:18)
[2019-01-08] MEDS: *HR* Heparin 5,000 UNIT/ML VIAL SQ SCH ×3 (05:18→21:57)
[2019-01-08 06:39] LABS: Bilirubin,Urine Negative (Negative); Blood,Urine Negative (Negative); Clarity,Urine Clear (Clear); Color,Urine Yellow (Yellow); Glucose,Urine (UA) Normal (Normal); Ketones,Urine Negative (Negative); Leukocyte Esterase,Urine Negative (Negative); Nitrite,Urine Negative (Negative); PH,Urine 7.5 pH Units (5.0-8.0); Protein,Urine Negative (Neg-Trace); Specific Gravity,Urine 1.007 (1.010-1.025); Urobilinogen,Urine Normal (Normal)
[2019-01-08] MEDS: Insulin LISPRO 300 UNITS/3 ML VIAL SQ SCH ×3 (07:51→16:20)
[2019-01-08] MEDS: Thiamine (B-1) 100 MG TABLET PO SCH (08:12)
[2019-01-08] MEDS: Folic Acid 1 MG TABLET PO SCH (08:12)
[2019-01-08] MEDS: Vitamin B Complex/Vit C/Vit E 1 EACH TABLET PO SCH (08:12)
[2019-01-08] MEDS: Lactulose Oral Soln 20 GM/30 ML UDC PO SCH ×2 (08:13→20:39)
[2019-01-08] MEDS: *HR* HYDROcodone/Acet 10/325 mg TABLET PO PRN ×2 (09:18→20:50)
--- NOTE | 2019-01-08 12:11 | Nephrology Progress Note ---
Date of Encounter: 01/08/19 Time of Encounter: 12:00 - Assessment and Plan (1) RAINA (acute kidney injury) Current Visit: Yes Status: Acute Objective - Vital Signs Vital signs: Vital Signs Temp Pulse Resp BP Pulse Ox 01/08/19 11:15 98.0 F 71 16 153/87 01/08/19 07:43 97.6 F 60 14 131/79 01/08/19 05:09 97.9 F 67 15 128/76 95 01/08/19 01:54 97.6 F 67 15 140/78 94 01/07/19 21:35 97.6 F 72 16 136/74 99 Intake and Output 01/07/19 01/08/19 01/08/19 23:59 07:59 15:59 Intake Total 1180 / 2000 200 / 800 600 / 800 Output Total 1250 / 2850 1200 / 1200 Balance -70 / -850 -1000 / -400 600 / -400 Intake: IV Fluids 100 / 200 100 / 100 Zosyn 3.375 GM In 0.9 % Sodium 100 / 200 100 / 100 Chloride (Mini-Bag +) 100 ML @ 25 mls/hr IVPB Q8HR [facility] Rx#: [id number] Oral 1080 / 1800 100 / 700 600 / 700 Output: Urine 1250 / 2850 1200 / 1200 Other: Meal Dinner Breakfast Percent of Meal Consumed 50% 95% # Voids 1 1 # Bowel Movements 1 Weight 125.6 kg Blood Glucose* 132 126 122 Patient Weight 01/08/19 23:59 Weight 125.6 kg - Lab 01/07/19 04:17 01/07/19 04:17 Consult Discharge Plan - Plan Referrals: Mynor Saldaña DO [Primary Care Provider] -
[2019-01-08 12:50] LABS: BUN/Creatinine Ratio 23 (6-26); Blood Urea Nitrogen 31 mg/dL (8-23); Calcium 9.3 mg/dL (8.6-10.3); Carbon Dioxide 29 mEq/L (23-29); Chloride 99 mEq/L (98-107); Glucose 120 mg/dL (70-105); Osmolality,Calculated 286 (280-300); Potassium 4.4 mEq/L (3.5-5.1); Sodium 134 mEq/L (136-145); eGFR For Non-African Americans 55 (> 60)
--- NOTE | 2019-01-08 15:52 | Internal Med Progress Note ---
Hospitalist Progress Note - Encounter Date of Encounter: 01/08/19 Time of Encounter: 15:52 - Subjective Interval History: Pt reports feeling better, although his legs are still quite swollen. He says the redness on his left nuñez is improving some. He has a nonhealing abrasion on L nuñez, too. Denies N/V/D, no SOB, no CP. - Exam Vitals: Temp Pulse Resp BP Pulse Ox 98.0 F 71 16 153/87 95 01/08/19 11:15 01/08/19 11:15 01/08/19 11:15 01/08/19 11:15 01/08/19 05:09 Exam: General: NAD, good eye contact, relatively well appearing Thoracic: Normal breath sounds b/l, no wheezing or crackles Cardio: Normal S1 and S2, regular rate and rhythm Abdomen: Soft, nontender, nondistended. Extremities: Warm, well perfused. DP pulses 2+ b/l. Significant edema b/l legs into thighs Skin: L nuñez w ~3cm wound, erythema present b/l L>R legs Neuro: Awake, fully oriented. Speech fluent - Summary of Assessment and Plan Summary of Assessment and Plan: Jaime Loera is a 63 M w hx cirrhosis, CKD2, who p/w LE edema and painful rash L leg in addition to decreased urination, Cr 2.5, concerning for fluid overload and RAINA as well as LLE cellulitis. Anasarca: RAINA improving today as Cr and UOP improved - trial lasix 40 iv x1 - compression hose - encouraged ambulation and elevation LLE Cellulitis: improving, convert to PO keflex 500 q6h, pharmacy to dose adjust for renal fxn EtOH Cirrhosis: compensated, LFTs normal - HE: not confused - EV: EGD 04/2018, grade 1 varices - Diuretics: holding home lasix (home dose is 40 daily, brandin unclear dose or if even taking) - Paracentesis: n/a CKD2: RAINA resolved, renally dose meds and avoid nephrotoxins DM2: holding PO meds, use SSI Chronic pain: needs outpatient pain referral Dep/anx: home xanax but decrease dose to 1 mg tid Morbid obesity: BMI 44 PPx: sqh FEN: cardiac, no MIVF Lines: PIV Consults: Neph, Palliative Code: DNRCCA DNI Dispo: patient requires inpatient eval and management at this time. Anticipate 2-4 days. Will be homegoing Internal Medicine: Result - Labs CBC & Chem 7: 01/07/19 04:17 01/08/19 12:22 Labs: BMP 01/08/19 12:22 Sodium 134 L Potassium 4.4 Chloride 99 Carbon Dioxide 29 BUN 31 H Creatinine 1.32 H Glucose 120 H Calcium 9.3 Urine 01/08/19 01/08/19 Range/Units 00:40 06:22 Urine Color Yellow Yellow (Yellow) Urine Clarity Clear Clear (Clear) Urine pH 8.0 7.5 (5.0-8.0) pH Units Ur Specific [place] 1.011 1.007 L (1.010-1.025) Urine Protein Trace Negative (Neg-Trace) mg/dL Urine Glucose (UA) Normal Normal (Normal) mg/dL - ABG Interpretation ABG results: PT/INR, D-dimer PT 11.5 Seconds (9.4-12.1) 01/07/19 04:17 - Impressions Impressions Retroperitoneum Ultrasound 01/07/19 15:30 IMPRESSION: Small postvoid bladder residual. Otherwise unremarkable ultrasound of the kidneys and bladder. D/ / 01/07/2019 17:24:56 Wander Garland MD / [facility] Interpreting Provider: Wander Garland MD Consult Discharge Plan - Plan Referrals: Mynor Saldaña DO [Primary Care Provider] -
[2019-01-08] MEDS ORDERED: Furosemide 40 MG/4 ML VIAL IVP ONE (16:01)
[2019-01-08] MEDS: ALPRAZolam 1 MG TABLET PO PRN (16:25)
[2019-01-08] MEDS: cephALEXin 500 MG CAPSULE PO SCH ×2 (16:25→20:39)
[2019-01-09 05:15] LABS: Hematocrit 29.4 % (37.5-50.1); Hemoglobin 9.8 g/dL (12.9-16.9); Mean Corpuscular HGB Conc 33.3 g/dL (31.6-35.5); Mean Corpuscular Hemoglobin 31.7 pg (28.0-33.3); Mean Corpuscular Volume 95.1 fL (83.0-100.0); Platelet Count 109 K/mcL (140-400); Red Blood Count 3.09 M/mcL (4.19-5.50); Red Cell Distribution Width 12.9 % (11.5-14.5)
[2019-01-09 05:22] LABS: INR 1.1; Prothrombin Time 12.7 Seconds (9.4-12.1)
[2019-01-09 05:30] LABS: Alanine Aminotransferase 14 Units/L (7-52); Albumin 3.6 g/dL (3.5-5.7); Albumin/Globulin Ratio 1.2 (1.1-2.2); Alkaline Phosphatase 58 Units/L (34-104); Aspartate Amino Transferase 19 Units/L (13-39); BUN/Creatinine Ratio 22 (6-26); Bilirubin,Direct 0.1 mg/dL (0.0-0.2); Bilirubin,Indirect 0.3 mg/dL (0.0-1.2); Bilirubin,Total 0.4 mg/dL (0.3-1.0); Blood Urea Nitrogen 24 mg/dL (8-23); Calcium 9.3 mg/dL (8.6-10.3); Carbon Dioxide 27 mEq/L (23-29); Chloride 100 mEq/L (98-107); Glucose 92 mg/dL (70-105); Magnesium 1.5 mg/dL (1.6-2.6); Osmolality,Calculated 284 (280-300); Potassium 3.7 mEq/L (3.5-5.1); Sodium 135 mEq/L (136-145); Total Protein 6.6 g/dL (6.4-8.9); eGFR For Non-African Americans > 60 (> 60)
[2019-01-09] MEDS: *HR* Heparin 5,000 UNIT/ML VIAL SQ SCH (06:09)
[2019-01-09] MEDS: Levothyroxine 25 MCG TABLET PO SCH (06:10)
[2019-01-09] MEDS: *HR* HYDROcodone/Acet 10/325 mg TABLET PO PRN ×3 (06:12→19:59)
[2019-01-09] MEDS: Insulin LISPRO 300 UNITS/3 ML VIAL SQ SCH ×3 (07:51→16:20)
[2019-01-09] MEDS: Thiamine (B-1) 100 MG TABLET PO SCH (08:24)
[2019-01-09] MEDS: Folic Acid 1 MG TABLET PO SCH (08:24)
[2019-01-09] MEDS: Furosemide 40 MG/4 ML VIAL IVP SCH ×2 (08:24→16:56)
[2019-01-09] MEDS: cephALEXin 500 MG CAPSULE PO SCH ×4 (08:24→20:00)
[2019-01-09] MEDS: Vitamin B Complex/Vit C/Vit E 1 EACH TABLET PO SCH (08:24)
[2019-01-09] MEDS: Lactulose Oral Soln 20 GM/30 ML UDC PO SCH ×3 (08:25→20:22)
[2019-01-09] MEDS: ALPRAZolam 1 MG TABLET PO PRN ×3 (08:34→22:38)
--- NOTE | 2019-01-09 12:25 | Internal Med Progress Note ---
Hospitalist Progress Note - Encounter Date of Encounter: 01/09/19 Time of Encounter: 12:21 - Subjective Interval History: Pt today feels good, says his leg swelling is improving and doesn't have any pain. He urinated a lot following dose of lasix yesterday, and today his kidney numbers look better and will thus continue lasix iv. Denies any N/V/D. - Exam Vitals: Temp Pulse Resp BP Pulse Ox 98.1 F 67 16 151/99 95 01/09/19 10:55 01/09/19 10:55 01/09/19 10:55 01/09/19 10:55 01/09/19 04:32 Exam: General: NAD, good eye contact, relatively well appearing Thoracic: Normal breath sounds b/l, no wheezing or crackles Cardio: Normal S1 and S2, regular rate and rhythm Abdomen: Soft, nontender, nondistended. Extremities: Warm, well perfused. DP pulses 2+ b/l. Improvement in but still persistent edema b/l legs but none in thighs Skin: L nuñez w ~3cm wound, erythema present b/l L>R legs Neuro: Awake, fully oriented. Speech fluent - Summary of Assessment and Plan Summary of Assessment and Plan: Jaime Loera is a 63 M w hx cirrhosis, CKD2, who p/w LE edema and painful rash L leg in addition to decreased urination, Cr 2.5, concerning for fluid overload and RAINA as well as LLE cellulitis. Anasarca: swelling improving today - lasix 40 iv bid, consider convert to PO tomorrow - compression hose - encouraged ambulation and elevation LLE Cellulitis: improving, continue keflex 500 q6h EtOH Cirrhosis: compensated, LFTs normal - HE: not confused - EV: EGD 04/2018, grade 1 varices - Diuretics: holding home lasix (home dose is 40 daily, brandin unclear dose or if even taking) - Paracentesis: n/a CKD2: RAINA resolved, renally dose meds and avoid nephrotoxins DM2: holding PO meds, use SSI Chronic pain: needs outpatient pain referral Dep/anx: home xanax but decrease dose to 1 mg tid Morbid obesity: BMI 44 PPx: lovenox FEN: cardiac, no MIVF Lines: PIV Consults: Neph, Palliative Code: DNRCCA DNI Dispo: patient requires inpatient eval and management at this time. Anticipate 2 days. Will be homegoing Internal Medicine: Result - Labs CBC & Chem 7: 01/09/19 04:24 01/09/19 04:24 Labs: Short CBC 01/09/19 Range/Units 04:24 WBC 3.5 L (4.3-11.1) K/mcL Hgb 9.8 L (12.9-16.9) g/dL Hct 29.4 L (37.5-50.1) % Plt Count 109 L (140-400) K/mcL BMP 01/08/19 01/09/19 12:22 04:24 Sodium 134 L 135 L Potassium 4.4 3.7 Chloride 99 100 Carbon Dioxide 29 27 BUN 31 H 24 H Creatinine 1.32 H 1.10 Glucose 120 H 92 Calcium 9.3 9.3 Liver Function 01/09/19 Range/Units 04:24 Total Bilirubin 0.4 (0.3-1.0) mg/dL Direct Bilirubin 0.1 (0.0-0.2) mg/dL AST 19 (13-39) Units/L ALT 14 (7-52) Units/L Alkaline Phosphatase 58 (34-104) Units/L Albumin 3.6 (3.5-5.7) g/dL - ABG Interpretation ABG results: PT/INR, D-dimer PT 12.7 Seconds (9.4-12.1) H 01/09/19 04:24 Consult Discharge Plan - Plan Referrals: Mynor Saldaña DO [Primary Care Provider] -
[2019-01-10] MEDS: *HR* Enoxaparin 40 MG/0.4 ML SYRINGE SQ SCH (06:00)
[2019-01-10] MEDS: Levothyroxine 25 MCG TABLET PO SCH (06:00)
[2019-01-10] MEDS: Insulin LISPRO 300 UNITS/3 ML VIAL SQ SCH ×3 (08:07→15:53)
[2019-01-10] MEDS: Folic Acid 1 MG TABLET PO SCH (08:15)
[2019-01-10] MEDS: Vitamin B Complex/Vit C/Vit E 1 EACH TABLET PO SCH (08:15)
[2019-01-10] MEDS: Thiamine (B-1) 100 MG TABLET PO SCH (08:15)
[2019-01-10] MEDS: Furosemide 40 MG/4 ML VIAL IVP SCH (08:15)
[2019-01-10] MEDS: cephALEXin 500 MG CAPSULE PO SCH ×4 (08:15→21:30)
[2019-01-10] MEDS: Lactulose Oral Soln 20 GM/30 ML UDC PO SCH ×3 (08:16→21:34)
[2019-01-10] MEDS: *HR* HYDROcodone/Acet 10/325 mg TABLET PO PRN ×3 (08:18→21:34)
[2019-01-10] MEDS: ALPRAZolam 1 MG TABLET PO PRN ×3 (08:18→21:34)
[2019-01-10 09:33] LABS: Hematocrit 31.9 % (37.5-50.1); Hemoglobin 11.1 g/dL (12.9-16.9); Mean Corpuscular HGB Conc 34.8 g/dL (31.6-35.5); Mean Corpuscular Hemoglobin 32.3 pg (28.0-33.3); Mean Corpuscular Volume 92.7 fL (83.0-100.0); Mean Platelet Volume 10.5 fL (9.4-12.4); Platelet Count 118 K/mcL (140-400); Red Blood Count 3.44 M/mcL (4.19-5.50); Red Cell Distribution Width 12.9 % (11.5-14.5)
[2019-01-10 09:53] LABS: Alanine Aminotransferase 15 Units/L (7-52); Albumin/Globulin Ratio 1.3 (1.1-2.2); Alkaline Phosphatase 63 Units/L (34-104); Aspartate Amino Transferase 18 Units/L (13-39); BUN/Creatinine Ratio 23 (6-26); Bilirubin,Direct 0.1 mg/dL (0.0-0.2); Bilirubin,Indirect 0.3 mg/dL (0.0-1.2); Bilirubin,Total 0.4 mg/dL (0.3-1.0); Blood Urea Nitrogen 29 mg/dL (8-23); Calcium 9.7 mg/dL (8.6-10.3); Carbon Dioxide 29 mEq/L (23-29); Chloride 98 mEq/L (98-107); Globulin 3.2 g/dL (2.4-3.5); Glucose 137 mg/dL (70-105); Magnesium 1.8 mg/dL (1.6-2.6); Osmolality,Calculated 292 (280-300); Potassium 3.5 mEq/L (3.5-5.1); Sodium 137 mEq/L (136-145); Total Protein 7.2 g/dL (6.4-8.9); eGFR For Non-African Americans 58 (> 60)
--- NOTE | 2019-01-10 10:20 | Palliative Progress Note ---
Date of Encounter: 01/10/19 Time of Encounter: 10:15 - Assessment and plan (1) Chronic back pain Current Visit: Yes Status: Acute Assessment and plan: Maintained with Dennis PRN as he takes at home. . Utilized x3 last 24 hours. Will make no changes to regimen Qualifiers: Back pain location: low back pain Back pain laterality: unspecified Qualified Code(s): M54.5 - Low back pain; G89.29 - Other chronic pain (2) Cellulitis of leg Current Visit: Yes Status: Acute Assessment and plan: Has improved with atb therapy. Qualifiers: Laterality: unspecified laterality Qualified Code(s): L03.119 - Cellulitis of unspecified part of limb (3) Alcoholic cirrhosis Current Visit: Yes Status: Chronic Qualifiers: Ascites presence: unspecified Qualified Code(s): K70.30 - Alcoholic cirrhosis of liver without ascites (4) RAINA (acute kidney injury) Current Visit: Yes Status: Acute Assessment and plan: Nephrology following. RAINA improved. (5) Goals of care, counseling/discussion Current Visit: Yes Status: Acute Assessment and plan: F/u to consultation on Thursday. Patient condition improved. He did ask me that he was confused why hospice was brought up by physician last week. Discussion regarding pt liver disease ensued, however, at this time he is stable and kidney function has improved. Discussed that his disease has not progressed to the point of eligibility of hospice care, and discussed what are some criteria that would signify progression of his disease to the point hospice care would be recommended. Patient verbalized understanding. Palliative will sign off. Please call if needed. (6) Palliative care encounter Current Visit: Yes Status: Acute - Time Spent With Patient Total time spent is greater than 50% in coordination of care (as documented) at patient's floor/unit and/or counseling patient: - Subjective Interval history: Patient sitting up in chair, in good spirits, states he feels much better. Reviewed labwork - Renal function much improved. Vitals stable. Patient hoping to go home tomorrow. - Constitutional Vitals: Abnormal lab results WBC 3.5 K/mcL (4.3-11.1) L 01/09/19 04:24 RBC 3.44 M/mcL (4.19-5.50) L 01/10/19 09:21 Hgb 11.1 g/dL (12.9-16.9) L 01/10/19 09:21 Hct 31.9 % (37.5-50.1) L 01/10/19 09:21 Plt Count 118 K/mcL (140-400) L 01/10/19 09:21 PT 12.7 Seconds (9.4-12.1) H 01/09/19 04:24 Sodium 135 mEq/L (136-145) L 01/09/19 04:24 Potassium 5.6 mEq/L (3.5-5.1) H 01/06/19 18:52 Carbon Dioxide 30 mEq/L (23-29) H 01/06/19 18:52 BUN 29 mg/dL (8-23) H 01/10/19 09:21 1.32 mg/dL (0.70-1.30) H 01/08/19 12:22 Est GFR ( Amer) 37 (> 60) L 01/07/19 04:17 Est GFR (Non-Af Amer) 58 (> 60) L 01/10/19 09:21 28 (6-26) H 01/07/19 04:17 Glucose 137 mg/dL (70-105) H 01/10/19 09:21 POC Glucose 130 mg/dL (70-99) H 01/09/19 15:07 303 (280-300) H 01/07/19 04:17 Magnesium 1.5 mg/dL (1.6-2.6) L 01/09/19 04:24 58 mcmol/L (16-53) H 01/07/19 13:14 Ur Specific [place] 1.007 (1.010-1.025) L 01/08/19 06:22 General appearance: Present: no acute distress, obese - Respiratory Respiratory exam: Present: decreased breath sounds, CTAB - Cardiovascular Cardiovascular exam: Present: +S1, +S2 - GI/Abdominal GI/Abdominal exam: Present: distended, soft - Extremities Exam Additional comments: 1+ bilateral lower extremity edema - Neurological Exam Neurological exam: Present: alert, oriented X3, strengths equal and symetr throughout - Skin Skin exam: Present: dry, warm Palliative Quality Palliative Quality: Screen for Code Status: Yes, Screen for Goals of Care: Yes, Screen for Pain: Yes, If Pain Regimen Started, Initiate Bowel Regimen: Yes, Scre en for Nausea/Vomitting: Yes Code Status: 01/07/19 02:10 Resuscitation Status: Active [RES] Routine Comment: Resuscitation Status: Full Code 01/07/19 10:54 Resuscitation Status: Active [RES] Routine Comment: Resuscitation Status: [id number] - Labs CBC & Chem 7: 01/10/19 09:21 01/10/19 09:21 Labs: Laboratory Results - last 24 hr 01/09/19 01/09/19 01/09/19 04:26 06:50 11:00 WBC RBC Hgb Hct MCV MCH MCHC RDW Plt Count MPV Sodium Potassium Chloride Carbon Dioxide BUN Creatinine Est GFR ( Amer) Est GFR (Non-Af Amer) BUN/Creatinine Ratio Glucose POC Glucose 81 103 H 117 H Calculated Osmolality Calcium Magnesium Total Bilirubin Direct Bilirubin Indirect Bilirubin AST ALT Alkaline Phosphatase Serum Total Protein Albumin Globulin Albumin/Globulin Ratio 01/09/19 01/10/19 01/10/19 15:07 09:21 09:21 WBC 5.2 RBC 3.44 L Hgb 11.1 L Hct 31.9 L MCV 92.7 MCH 32.3 MCHC 34.8 RDW 12.9 Plt Count 118 L MPV 10.5 Sodium 137 Potassium 3.5 Chloride 98 Carbon Dioxide 29 BUN 29 H Creatinine 1.26 Est GFR ( Amer) > 60 Est GFR (Non-Af Amer) 58 L BUN/Creatinine Ratio 23 Glucose 137 H POC Glucose 130 H Calculated Osmolality 292 Calcium 9.7 Magnesium 1.8 Total Bilirubin 0.4 Direct Bilirubin 0.1 Indirect Bilirubin 0.3 AST 18 ALT 15 Alkaline Phosphatase 63 Serum Total Protein 7.2 Albumin 4.0 Globulin 3.2 Albumin/Globulin Ratio 1.3 - ABG Interpretation ABG results: PT/INR, D-dimer PT 12.7 Seconds (9.4-12.1) H 01/09/19 04:24 Palliative Scale - Palliative Performance Scale How ambulatory is this patient?: Mainly sit / lie What is patient's level of activity and evidence of disease?: Unable normal job/work, Significant disease How much self-care assistance does patient require?: Occasional assistance necessary How much oral intake does the patient have?: Normal or reduced What is this patient's level of consciousness?: Full Palliative Performance Score: 60 % Consult Discharge Plan - Plan Referrals: Mynor Saldaña DO [Primary Care Provider] -
[2019-01-10] MEDS: Furosemide 40 MG TABLET PO SCH (15:47)
--- NOTE | 2019-01-10 15:52 | Internal Med Progress Note ---
Hospitalist Progress Note - Encounter Date of Encounter: 01/10/19 Time of Encounter: 15:50 - Subjective Interval History: Pt asking to go home as he's feeling better. Amenable to staying to prove PO diuretics will work. Does continue to make good urine. Denies CP, SOB, abd pain, N/V. - Exam Vitals: Temp Pulse Resp BP Pulse Ox 97.9 F 63 18 150/86 94 01/10/19 15:40 01/10/19 15:40 01/10/19 15:40 01/10/19 15:40 01/10/19 15:40 Exam: General: NAD, good eye contact, relatively well appearing Thoracic: Normal breath sounds b/l, no wheezing or crackles Cardio: Normal S1 and S2, regular rate and rhythm Abdomen: Soft, nontender, nondistended. Extremities: Warm, well perfused. DP pulses 2+ b/l. Pitting edema b/l legs, improving Skin: L nuñez w ~3cm wound, erythema present b/l L>R legs Neuro: Awake, fully oriented. Speech fluent - Summary of Assessment and Plan Summary of Assessment and Plan: Jaime Loera is a 63 M w hx cirrhosis, CKD2, who p/w LE edema and painful rash L leg in addition to decreased urination, Cr 2.5, concerning for fluid overload and RAINA as well as LLE cellulitis. Anasarca: swelling continues improving - convert to lasix 40 po bid - continue supportive measures including compression hose, ambulation, and elevation LLE Cellulitis: improving, continue keflex 500 q6h, last doses 01/15/2019 Hypokalemia: replace and monitor EtOH Cirrhosis: compensated, LFTs normal - HE: not confused - EV: EGD 04/2018, grade 1 varices - Diuretics: discharge on lasix 40 bid, holding brandin given RAINA - Paracentesis: n/a CKD2: RAINA resolved, renally dose meds and avoid nephrotoxins DM2: holding PO meds, use SSI Chronic pain: needs outpatient pain referral Dep/anx: home xanax but decrease dose to 1 mg tid Morbid obesity: BMI 44 PPx: lovenox FEN: cardiac, no MIVF Lines: PIV Consults: Neph, Palliative Code: DNRCCA DNI Dispo: patient requires inpatient eval and management at this time. Anticipate d/c tomorrow, will be homegoing Internal Medicine: Result - Labs CBC & Chem 7: 01/10/19 09:21 01/10/19 09:21 Labs: Short CBC 01/10/19 Range/Units 09:21 WBC 5.2 (4.3-11.1) K/mcL Hgb 11.1 L (12.9-16.9) g/dL Hct 31.9 L (37.5-50.1) % Plt Count 118 L (140-400) K/mcL BMP 01/10/19 09:21 Sodium 137 Potassium 3.5 Chloride 98 Carbon Dioxide 29 BUN 29 H Creatinine 1.26 Glucose 137 H Calcium 9.7 Liver Function 01/10/19 Range/Units 09:21 Total Bilirubin 0.4 (0.3-1.0) mg/dL Direct Bilirubin 0.1 (0.0-0.2) mg/dL AST 18 (13-39) Units/L ALT 15 (7-52) Units/L Alkaline Phosphatase 63 (34-104) Units/L Albumin 4.0 (3.5-5.7) g/dL - ABG Interpretation ABG results: PT/INR, D-dimer PT 12.7 Seconds (9.4-12.1) H 01/09/19 04:24 Consult Discharge Plan - Plan Referrals: Mynor Saldaña DO [Primary Care Provider] -
[2019-01-11] MEDS: Levothyroxine 25 MCG TABLET PO SCH (05:07)
[2019-01-11] MEDS: *HR* Enoxaparin 40 MG/0.4 ML SYRINGE SQ SCH (05:07)
[2019-01-11] MEDS: *HR* HYDROcodone/Acet 10/325 mg TABLET PO PRN (05:10)
[2019-01-11] MEDS: ALPRAZolam 1 MG TABLET PO PRN (05:10)
[2019-01-11 06:56] VITALS: BP 138/89
[2019-01-11] MEDS: Insulin LISPRO 300 UNITS/3 ML VIAL SQ SCH (07:30)
--- NOTE | 2019-01-11 08:24 | Discharge Summary ---
- NOTES TO OUTPATIENT PROVIDER Notes to Outpatient Provider: HFpEF on lasix 40 bid, cellulitis LLE on keflex thru 01/15 Date of Encounter: 01/11/19 Time of Encounter: 08:23 Hospital course: Dear Doctors, I recently had the opportunity to care for this patient during their recent hospital stay at [facility]. Jaime Loera is a 63 M w hx cirrhosis, HFpEF, CKD2, who presented at time of admission with progressive LE edema, painful rash of L leg, and decreased urination. In the ED, pt edematous in legs through thighs with erythematous L nuñez wound, with Cr 2.5, concerning for fluid overload and RAINA as well as LLE cellulitis. In the hospital, patient was diuresed aggressively with IV lasix. He diuresed well, and was converted to PO lasix 40 bid and monitored 24h to ensure continued UOP, and on day of discharge had significantly improved pedal edema. RAINA improved with diuresis. Cellulitis improved on IV abx and continued improving on Keflex 500 qid. Of note, patient did express interest in no longer pursuing medical management and instead pursuing hospice; however he does not qualify for hospice as his current medical problems are controllable with medications and he does wish to stay alive for his grandchildren. Palliative consultation involved in educating patient in this regard. Dx: Acute on chronic HFpEF, LLE cellulitis Pertinent tests/consults: TTE showing moderate diastolic dysfunction, palliative consultation Follow up: PCP 1 week, Cardio 1 week Tests pending: none Med changes: - new keflex 500 qid, last dose 01/15 - increase lasix to 40 bid - new lactulose 10mg/15ml bid - stop hctz/losartan 25/100 - start losartan 50 - decrease home xanax from 2 tid to 1 tid - decrease home mobic from 15 daily to 7.5 daily - decrease home trazodone from 300 qhs to 200 qhs Mental status: awake, fully oriented Code status: DNRCC-A DNI Time spent on discharge: 35 minutes It has been my pleasure participating in this patient's care. Please contact me with any questions or concerns regarding their hospital stay. Sincerely, Yonatan Wheatley MD - Discharge Medications Prescriptions: New cephALEXin [Keflex] 500 mg PO QID #16 capsule Lactulose 10 gm PO BID #99 udc Losartan Potassium 50 mg PO DAILY #30 tablet Continued Simvastatin [Zocor] 40 mg PO DAILY Nadolol 20 mg PO DAILY Duloxetine HCl [Cymbalta] 60 mg PO DAILY Pregabalin [Lyrica] 200 mg PO TID Potassium Chloride [K-Tab ER] 20 meq PO DAILY Levothyroxine [Synthroid] 25 mcg PO QAM Glimepiride [Amaryl] 4 mg PO DAILY metFORMIN [Glucophage] 500 mg PO BID HYDROcodone/Acet 10/325 mg [[place] 10-325 mg] 1 tab PO TID Cetirizine HCl 10 mg PO BID Cholecalciferol (D-3) [Vitamin D] 1,000 unit PO DAILY Fluocinonide 1 appl TP DAILY Fluticasone Propionate Nasal [Flonase] 2 spray NS BID Ketoconazole Shampoo [Nizoral Shampoo] 1 appl TP DAILY Lactose-Reduced Food [Ensure Plus] 1 bottle PO TID Pantoprazole Sodium [Protonix] 40 mg PO DAILY Changed Furosemide [Lasix] 40 mg PO BID #60 tablet Meloxicam 7.5 mg PO DAILY #0 Trazodone HCl 200 mg PO HS #0 Alprazolam [Xanax] 1 mg PO TID #0 Discontinued Losartan/Hydrochlorothiazide [Hyzaar 100-25 Tablet] 1 tab PO DAILY Home Medications: Duloxetine HCl [Cymbalta] 60 mg PO DAILY 01/06/19 [History] Glimepiride [Amaryl] 4 mg PO DAILY 01/06/19 [History] HYDROcodone/Acet 10/325 mg [[place] 10-325 mg] 1 tab PO TID 01/06/19 [History] Levothyroxine [Synthroid] 25 mcg PO QAM 01/06/19 [History] Nadolol 20 mg PO DAILY 01/06/19 [History] Potassium Chloride [K-Tab ER] 20 meq PO DAILY 01/06/19 [History] Pregabalin [Lyrica] 200 mg PO TID 01/06/19 [History] Simvastatin [Zocor] 40 mg PO DAILY 01/06/19 [History] metFORMIN [Glucophage] 500 mg PO BID 01/06/19 [History] Cetirizine HCl 10 mg PO BID 01/07/19 [History] Cholecalciferol (D-3) [Vitamin D] 1,000 unit PO DAILY 01/07/19 [History] Fluocinonide 1 appl TP DAILY 01/07/19 [History] Fluticasone Propionate Nasal [Flonase] 2 spray NS BID 01/07/19 [History] Ketoconazole Shampoo [Nizoral Shampoo] 1 appl TP DAILY 01/07/19 [History] Lactose-Reduced Food [Ensure Plus] 1 bottle PO TID 01/07/19 [History] Pantoprazole Sodium [Protonix] 40 mg PO DAILY 01/07/19 [History] Alprazolam [Xanax] 1 mg PO TID #0 01/11/19 [Rx] Furosemide [Lasix] 40 mg PO BID #60 tablet 01/11/19 [Rx] Lactulose 10 gm PO BID #99 udc 01/11/19 [Rx] Losartan Potassium 50 mg PO DAILY #30 tablet 01/11/19 [Rx] Meloxicam 7.5 mg PO DAILY #0 01/11/19 [Rx] Trazodone HCl 200 mg PO HS #0 01/11/19 [Rx] cephALEXin [Keflex] 500 mg PO QID #16 capsule 01/11/19 [Rx] Allergies/Adverse Reactions: Allergy/AdvReac Type Severity Reaction Status Date / Time No Known Allergies Allergy Verified 01/07/19 14:22 Date of admission: 01/07/19 02:10 Primary care physician: Mynor Saldaña DO Consults: 01/07/19 02:10 Consult to Nephrology [CONS] Routine Consulting Provider: Kidney Sophia/BETSY/JH/ENRRIQUE Reason for Consult: acute renal failure; cirrhosis Call Completed: No 01/07/19 15:34 Consult to Palliative Care [CONS] Routine Comment: Consulting Provider: Palliative Care [place] Reason for Consult: home hospoice possible?? Call Completed: Yes - Constitutional Vitals: Temp Pulse Resp BP Pulse Ox 97.9 F 62 18 138/89 97 01/11/19 06:55 01/11/19 06:55 01/11/19 06:55 01/11/19 06:55 01/11/19 06:55 General appearance: Present: cooperative, A&O X 3, pleasant, no acute distress, answers questions appropriately Exam: General: NAD, good eye contact, relatively well appearing Thoracic: Normal breath sounds b/l, no wheezing or crackles Cardio: Normal S1 and S2, regular rate and rhythm Abdomen: Soft, nontender, nondistended. Extremities: Warm, well perfused. DP pulses 2+ b/l. Pitting edema 1+ b/l shins continues improving Skin: L nuñez w ~3cm wound, erythema improved Neuro: Awake, fully oriented. Speech fluent - Patient Status Disposition: Home Health Service Condition: Fair Functional capacity at discharge: independent ambulation Overall status at discharge: patient is progressing back to baseline - Discharge Instructions Instructions: Cephalexin (By mouth), Furosemide (By mouth), Lactulose (By m outh), Losartan (By mouth), Heart Failure (DC), Cellulitis (DC) Follow Up With: Mynor Saldaña DO [Primary Care Provider] - 01/18/19 12:00 pm Roxanna Preciado DO [Partnered Physician] - - Diet and Activity Activity: resume usual activities as tolerated Diet: low salt diet (2L restriction)
[2019-01-11] MEDS: cephALEXin 500 MG CAPSULE PO SCH (09:17)
[2019-01-11] MEDS: Vitamin B Complex/Vit C/Vit E 1 EACH TABLET PO SCH (09:17)
[2019-01-11] MEDS: Thiamine (B-1) 100 MG TABLET PO SCH (09:17)
[2019-01-11] MEDS: Folic Acid 1 MG TABLET PO SCH (09:17)
[2019-01-11] MEDS: Lactulose Oral Soln 20 GM/30 ML UDC PO SCH (09:17)
[2019-01-11] MEDS: Furosemide 40 MG TABLET PO SCH (09:17)
[2019-01-11 09:42] LABS: Hematocrit 30.3 % (37.5-50.1); Hemoglobin 10.1 g/dL (12.9-16.9); Mean Corpuscular HGB Conc 33.3 g/dL (31.6-35.5); Mean Corpuscular Hemoglobin 31.5 pg (28.0-33.3); Mean Corpuscular Volume 94.4 fL (83.0-100.0); Mean Platelet Volume 10.8 fL (9.4-12.4); Platelet Count 103 K/mcL (140-400); Red Blood Count 3.21 M/mcL (4.19-5.50)
[2019-01-11 09:59] LABS: Alanine Aminotransferase 14 Units/L (7-52); Albumin/Globulin Ratio 1.3 (1.1-2.2); Alkaline Phosphatase 68 Units/L (34-104); Aspartate Amino Transferase 19 Units/L (13-39); BUN/Creatinine Ratio 30 (6-26); Bilirubin,Indirect 0.4 mg/dL (0.0-1.2); Bilirubin,Total 0.4 mg/dL (0.3-1.0); Blood Urea Nitrogen 33 mg/dL (8-23); Calcium 9.7 mg/dL (8.6-10.3); Carbon Dioxide 29 mEq/L (23-29); Chloride 100 mEq/L (98-107); Glucose 97 mg/dL (70-105); Magnesium 1.7 mg/dL (1.6-2.6); Osmolality,Calculated 295 (280-300); Potassium 3.4 mEq/L (3.5-5.1); Sodium 139 mEq/L (136-145); eGFR For Non-African Americans > 60 (> 60)
--- NOTE | 2019-01-11 12:55 | Physician Discharge Referral ---
Home Health/Hosp Referral Info Transfer to: Home Health Provider in Charge Post Discharge: PCP - Respiratory Orders Smoking Cessation: Smoking cessation has been advised. For more information, call the [place] Tobacco Quit Line at 5-029-QAAG-NOW. - Services Needed Following services are medically necessary services: Nursing - Transfer Medications Prescriptions: cephALEXin [Keflex] 500 mg PO QID #16 capsule Lactulose 10 gm PO BID #99 udc Furosemide [Lasix] 40 mg PO BID #60 tablet Losartan Potassium 50 mg PO DAILY #30 tablet Home Medications: Duloxetine HCl [Cymbalta] 60 mg PO DAILY 01/06/19 [History] Glimepiride [Amaryl] 4 mg PO DAILY 01/06/19 [History] HYDROcodone/Acet 10/325 mg [[place] 10-325 mg] 1 tab PO TID 01/06/19 [History] Levothyroxine [Synthroid] 25 mcg PO QAM 01/06/19 [History] Nadolol 20 mg PO DAILY 01/06/19 [History] Potassium Chloride [K-Tab ER] 20 meq PO DAILY 01/06/19 [History] Pregabalin [Lyrica] 200 mg PO TID 01/06/19 [History] Simvastatin [Zocor] 40 mg PO DAILY 01/06/19 [History] metFORMIN [Glucophage] 500 mg PO BID 01/06/19 [History] Cetirizine HCl 10 mg PO BID 01/07/19 [History] Cholecalciferol (D-3) [Vitamin D] 1,000 unit PO DAILY 01/07/19 [History] Fluocinonide 1 appl TP DAILY 01/07/19 [History] Fluticasone Propionate Nasal [Flonase] 2 spray NS BID 01/07/19 [History] Ketoconazole Shampoo [Nizoral Shampoo] 1 appl TP DAILY 01/07/19 [History] Lactose-Reduced Food [Ensure Plus] 1 bottle PO TID 01/07/19 [History] Pantoprazole Sodium [Protonix] 40 mg PO DAILY 01/07/19 [History] Alprazolam [Xanax] 1 mg PO TID #0 01/11/19 [Rx] Furosemide [Lasix] 40 mg PO BID #60 tablet 01/11/19 [Rx] Lactulose 10 gm PO BID #99 udc 01/11/19 [Rx] Losartan Potassium 50 mg PO DAILY #30 tablet 01/11/19 [Rx] Meloxicam 7.5 mg PO DAILY #0 01/11/19 [Rx] Trazodone HCl 200 mg PO HS #0 01/11/19 [Rx] cephALEXin [Keflex] 500 mg PO QID #16 capsule 01/11/19 [Rx] Allergies/Adverse Reactions: Allergy/AdvReac Type Severity Reaction Status Date / Time No Known Allergies Allergy Verified 01/07/19 14:22 Certification: Further, I certify that my clinical findings support that this patient is homebound (i.e. absences from home require considerable and taxing effort and are for medical reasons or sikh services or infrequently or short duration when for other reasons) because: Homebound Reason: Leaving home requires considerable and taxing effort due to condition Attestation: My signature below is to certify that this patient is under my care and that I, or nurse practitioner, or a physician's assistant counsel working with me, has a [id number] encounter with this patient.
== END 2019-01-11 13:49 | disposition home health service (06) | DRG 602 ==
LOC: 2NENU 18:32 → EMEROOARM 18:32 → 2NENU 23:07 → SUATTDRO 01-07 02:10
PROVIDERS: ADMIT Pediatrics; ATTEND Internal Medicine

== ENCOUNTER 2022-04-08 10:32 | Observation (INO) ==
[2022-04-08 11:29] LABS: Basophils % 0.3 %; Eosinophils # 0.1 K/mcL (0.0-0.6); Eosinophils % 0.7 %; Hemoglobin 15.5 g/dL (12.9-16.9); Immature Granulocytes % 0.3 % (0-4); Lymphocytes # 1.2 K/mcL (0.6-4.6); Lymphocytes % 13.8 %; Mean Corpuscular HGB Conc 33.7 g/dL (31.6-35.5); Mean Corpuscular Hemoglobin 30.4 pg (28.0-33.3); Mean Corpuscular Volume 90.2 fL (83.0-100.0); Mean Platelet Volume 10.5 fL (9.4-12.4); Monocytes # 0.9 K/mcL (0.0-1.3); Monocytes % 10.3 %; Neutrophils # 6.6 K/mcL (1.6-8.9); Platelet Count 179 K/mcL (140-400); Red Cell Distribution Width 14.4 % (11.5-14.5); Segmented Neutrophils % 74.6 %; White Blood Count 8.8 K/mcL (4.3-11.1)
[2022-04-08] MEDS ORDERED: 0.9 % Sodium Chloride 500 ML IVC ONE ×2 (11:32→12:12)
[2022-04-08 11:50] LABS: Alanine Aminotransferase 182 Units/L (7-52); Albumin 4.2 g/dL (3.5-5.7); Albumin/Globulin Ratio 1.4 (1.1-2.2); Alkaline Phosphatase 89 Units/L (34-104); Aspartate Amino Transferase 416 Units/L (13-39); BUN/Creatinine Ratio 12 (6-26); Bilirubin,Total 0.7 mg/dL (0.3-1.0); Blood Urea Nitrogen 16 mg/dL (8-23); Calcium 8.8 mg/dL (8.6-10.3); Carbon Dioxide 29 mEq/L (23-29); Chloride 100 mEq/L (98-107); Globulin 2.9 g/dL (2.4-3.5); Glucose 138 mg/dL (70-105); Osmolality,Calculated 287 (280-300); Potassium 4.1 mEq/L (3.5-5.1); Sodium 137 mEq/L (136-145); Total Protein 7.1 g/dL (6.4-8.9); Troponin I < 0.03 ng/mL (< 0.04); eGFR For African Americans > 60 (> 60); eGFR For Non-African Americans 53 (> 60)
[2022-04-08] MEDS ORDERED: Clindamycin 600 MG/50 ML 600 MG/50 ML IV.SOLN IVPB STA (14:00)
[2022-04-08] MEDS ORDERED: Morphine Sulfate 2 MG/ML SYRINGE IVP ONE ×2 (14:08→18:50)
[2022-04-08] MEDS ORDERED: 0.9 % Sodium Chloride 1,000 ML IVC ONE (19:46)
[2022-04-08 20:11] LABS: Bilirubin,Urine Negative (Negative); Blood,Urine Large (Negative); Clarity,Urine Clear (Clear); Color,Urine Colorless (Yellow); Glucose,Urine (UA) 150 mg/dL (Normal); Ketones,Urine Negative (Negative); Leukocyte Esterase,Urine Negative (Negative); Nitrite,Urine Negative (Negative); Protein,Urine 50 mg/dL (Neg-Trace); RBC,Urine 0-3 per hpf (0-3); Specific Gravity,Urine 1.011 (1.010-1.025); Urobilinogen,Urine Normal (Normal)
[2022-04-08 20:19] LABS: Creatine Kinase > 20000 Units/L (30-223)
[2022-04-08] MEDS ORDERED: Naloxone 0.4 MG/ML INJ IVP PRN (21:04)
[2022-04-08] MEDS ORDERED: Ondansetron ODT 4 MG TAB.RAPDIS SL PRN (21:04)
[2022-04-08] MEDS ORDERED: Acetaminophen 325 MG TABLET PO PRN (21:04)
[2022-04-08] MEDS ORDERED: Melatonin 3 MG TABLET PO PRN (21:04)
[2022-04-08] MEDS ORDERED: *HR* HYDROcodone/Acet 10/325 mg TABLET PO ONE (21:45)
[2022-04-08] MEDS ORDERED: *HR* Dextrose 50 % in Water (Syg) 50 ML SYRINGE IVP PRN (21:47)
[2022-04-08] MEDS ORDERED: D5% in Water 1,000 ML IVC PRN (21:47)
[2022-04-08] MEDS ORDERED: Dextrose Gel 15 GM/37.5 ML TUBE PO PRN ×2 (21:47)
[2022-04-08] MEDS ORDERED: Insulin LISPRO 300 UNITS/3 ML VIAL SUBQ SCH (22:00)
[2022-04-08] MEDS: 0.9 % Sodium Chloride 1,000 ML IVC SCH (22:50)
[2022-04-08] MEDS ORDERED: traZODone 50 MG TABLET PO ONE (22:53)
[2022-04-09] MEDS: Clindamycin 600 MG/50 ML 600 MG/50 ML IV.SOLN IVPB SCH ×2 (00:09→09:08)
[2022-04-09] MEDS ORDERED: *HR* HYDROmorphone (PF) 1 MG/ML SYRINGE IVP ONE ×2 (02:43→09:28)
[2022-04-09] MEDS: 0.9 % Sodium Chloride 1,000 ML IVC SCH (05:32)
[2022-04-09 06:28] LABS: Hematocrit 39.6 % (37.5-50.1); Mean Corpuscular HGB Conc 34.1 g/dL (31.6-35.5); Mean Corpuscular Hemoglobin 30.7 pg (28.0-33.3); Mean Platelet Volume 10.5 fL (9.4-12.4); Platelet Count 144 K/mcL (140-400); Red Cell Distribution Width 14.3 % (11.5-14.5)
[2022-04-09 06:42] LABS: White Blood Count 13.6 K/mcL (4.3-11.1)
[2022-04-09 06:44] LABS: Hemoglobin 13.5 g/dL (12.9-16.9)
[2022-04-09 06:46] LABS: BUN/Creatinine Ratio 19 (6-26); Blood Urea Nitrogen 17 mg/dL (8-23); Calcium 7.8 mg/dL (8.6-10.3); Carbon Dioxide 27 mEq/L (23-29); Chloride 100 mEq/L (98-107); Glucose 163 mg/dL (70-105); Magnesium 1.5 mg/dL (1.6-2.6); Osmolality,Calculated 281 (280-300); Phosphorous 2.5 mg/dL (2.7-4.5); Potassium 3.4 mEq/L (3.5-5.1); Sodium 133 mEq/L (136-145); eGFR For African Americans > 60 (> 60); eGFR For Non-African Americans > 60 (> 60)
[2022-04-09] MEDS ORDERED: 0.9 % Sodium Chloride 1,000 ML IVC SCH (08:00)
[2022-04-09] MEDS ORDERED: ALPRAZolam 0.5 MG TABLET PO PRN (09:00)
[2022-04-09] MEDS: Insulin LISPRO 300 UNITS/3 ML VIAL SUBQ SCH ×2 (09:07→11:40)
[2022-04-09 09:39] VITALS: O2SAT 96
[2022-04-09] MEDS ORDERED: *HR* OxyCODONE/APAP 7.5/325 TABLET PO PRN (12:00)
[2022-04-09 13:38] VITALS: BP 166/84; TEMP 98.2
[2022-04-09 13:41] VITALS: PULSE 101
[2022-04-09] MEDS ORDERED: Ketorolac 30 MG/ML VIAL IVP PRN (14:18)
[2022-04-09] MEDS ORDERED: tiZANidine 4 MG TABLET PO SCH (14:30)
[2022-04-09] MEDS ORDERED: *HR* Heparin 5,000 UNIT/ML VIAL SQ SCH (18:00)
== END 2022-04-09 17:00 | disposition left against medical advice (07) ==
LOC: EMEROOARM 10:32 → 3BNU 10:32 → SUATTDRO 04-09 12:33 → 3BNU 04-09 13:29
PROVIDERS: ADMIT Internal Medicine; ATTEND Internal Medicine